=== PATIENT | male | born 1965 | race Caucasian/White ===

== ENCOUNTER 2016-09-15 15:25 | Inpatient (IN) ==
--- NOTE | 2016-09-15 15:47 | EKG Report ---
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
[2016-09-15] MEDS ORDERED: ASPIRIN CHEW 81 MG TABLET PO STA (17:26)
[2016-09-15] MEDS ORDERED: ALUMINUM/MAGNES/SIMETH MAX STR 30 ML UDCUP PO ONE (17:26)
[2016-09-15 17:40] LABS: Basophils # 0.1 10*3/uL (0.0-0.2); Basophils % 1.1 % (0.0-0.8); Eosinophils # 0.3 10*3/uL (0.0-0.87); Eosinophils % 3.3 % (0.00-10.9); Hematocrit 41.1 VOL% (42.0-52.0); Hemoglobin 14.1 GM/DL (14.0-18.0); Immature Granulocytes % 0.2 %; Immature Granulocytes Absolute 0.02 #; Lymphocytes # 2.1 10*3/uL (1.4-4.0); Mean Corpuscular HGB Conc 34.3 GM/DL (32-36); Mean Corpuscular Hemoglobin 28 PG (27-34); Mean Platelet Volume 10.3 FL (9.6-12.0); Monocytes # 0.7 10*3/uL (0.11-0.8); Monocytes % 8.5 % (1.7-12.7); Neutrophils # 5.1 10*3/uL (1.4-7.4); Neutrophils % 61.9 % (38.7-73.9); Platelet Count 188 T/CUMM (130-400); Red Blood Count 5.01 MC/CUMM (3.8-5.5); White Blood Count 8.2 T/CUMM (4-12)
[2016-09-15] MEDS ORDERED: ASPIRIN 325 MG TABLET ONE (17:52)
[2016-09-15] MEDS ORDERED: ALUM/MAG/SIMETH/LIDO VISC 1:1 30 ML BOTTLE PO ONE (17:52)
[2016-09-15 18:07] LABS: Calcium 9.2 MG/DL (8.5-10.1); Osmolality,Calculated 280.4 MOS/KG (273-304); Potassium 3.9 MMOL/L (3.5-5.1)
[2016-09-15 18:11] LABS: Troponin I Only < 0.015 NG/ML (0.00-0.045)
--- NOTE | 2016-09-15 18:43 | XRay Report ---
History is chest pain Comparison 06/30/2016 The heart is mildly enlarged Moderate hiatal hernia again seen Superior mediastinal contour is unchanged No congestive failure or confluent infiltrate is seen Impression: 1. Mild cardiomegaly 2. Moderate hiatal hernia PROCEDURE INTERPRETED AT [facility] DEPARTMENT OF RADIOLOGY Final Report Signed by: Dr. Idalia Cedillo
[2016-09-15] MEDS ORDERED: ENOXAPARIN 100 MG/ML SYRINGE SUBCUT STA (19:28)
[2016-09-15] MEDS ORDERED: ENOXAPARIN 120 MG/0.8 ML SYRINGE SUBCUT ONE (19:42)
[2016-09-15] MEDS ORDERED: MAGNESIUM SULF RIDER 4 GM in PREMIX 1 EACH IV PRN (20:43)
[2016-09-15] MEDS ORDERED: DEXTROSE 50% 25 GM/50 ML VIAL IV PRN (20:43)
[2016-09-15] MEDS ORDERED: MORPHINE 2 MG/1 ML SYRINGE IV PRN (20:43)
[2016-09-15] MEDS ORDERED: POTASSIUM CHLORIDE 20 MEQ TABLET PO PRN (20:43)
[2016-09-15] MEDS ORDERED: SODIUM CHLORIDE 0.9% 1,000 ML IV SCH (20:43)
[2016-09-15] MEDS ORDERED: GLUCAGON 1 MG VIAL IM PRN (20:43)
[2016-09-15] MEDS ORDERED: MAGNESIUM SULF RIDER 2 GM in PREMIX 1 EACH IV PRN (20:43)
[2016-09-15] MEDS ORDERED: clonazePAM 0.5 MG TABLET PO PRN (20:43)
[2016-09-15] MEDS ORDERED: cloNIDine 0.1 MG TABLET PO PRN (20:43)
[2016-09-15] MEDS ORDERED: ONDANSETRON 4 MG/2 ML VIAL IV PRN (20:43)
[2016-09-15] MEDS: FAMOTIDINE 20 MG TABLET PO SCH (21:09)
[2016-09-15] MEDS: CARVEDILOL 12.5 MG TABLET PO SCH (21:09)
[2016-09-15] MEDS: CEFUROXIME 250 MG TABLET PO SCH (21:09)
[2016-09-15 21:57] LABS: Troponin I Only < 0.015 NG/ML (0.00-0.045)
[2016-09-15] MEDS: INSULIN REGULAR 100 UNIT/ML SUBCUT SCH (22:31)
[2016-09-16] MEDS: NITROGLYCERIN 2% OINT 1 INCH/GM PACK TOP SCH ×5 (01:39→17:53)
[2016-09-16 04:04] LABS: Basophils # 0.1 10*3/uL (0.0-0.2); Basophils % 0.7 % (0.0-0.8); Eosinophils # 0.2 10*3/uL (0.0-0.87); Eosinophils % 3.4 % (0.00-10.9); Hematocrit 37.8 VOL% (42.0-52.0); Hemoglobin 12.7 GM/DL (14.0-18.0); Immature Granulocytes % 0.1 %; Immature Granulocytes Absolute 0.01 #; Lymphocytes # 2.3 10*3/uL (1.4-4.0); Lymphocytes % 34.6 % (21.2-54.2); Mean Corpuscular HGB Conc 33.6 GM/DL (32-36); Mean Corpuscular Hemoglobin 28 PG (27-34); Mean Corpuscular Volume 82.5 FL (87-102); Mean Platelet Volume 11.5 FL (9.6-12.0); Monocytes # 0.6 10*3/uL (0.11-0.8); Monocytes % 9.3 % (1.7-12.7); Neutrophils # 3.5 10*3/uL (1.4-7.4); Neutrophils % 51.9 % (38.7-73.9); Platelet Count 162 T/CUMM (130-400); Red Blood Count 4.58 MC/CUMM (3.8-5.5); Red Cell Distribution Width 13.2 % (9.3-17.3); White Blood Count 6.7 T/CUMM (4-12)
[2016-09-16 04:24] LABS: Bilirubin,Total 0.6 MG/DL (0.2-1.0); Calcium 8.6 MG/DL (8.5-10.1); Magnesium 2.3 MG/DL (1.8-2.4); Osmolality,Calculated 285.1 MOS/KG (273-304); Potassium 3.7 MMOL/L (3.5-5.1); Risk Ratio 3.12; Total Protein 5.9 G/DL (6.4-8.3); VLDL CHOLESTEROL 24.6 MG/DL
[2016-09-16 04:28] LABS: Troponin I Only < 0.015 NG/ML (0.00-0.045)
--- NOTE | 2016-09-16 08:52 | XRay Report ---
Portable chest Date: 09/16/2016 Clinical history: Shortness of breath Comparison: 09/15/2016 Technique: Portable AP sitting chest Findings: The heart is minimally enlarged with progressive atelectasis at the lung bases. Hiatal hernia with degenerative changes. Impression: Persistent cardiomegaly with hiatal hernia. Minimal atelectasis at the lung bases. PROCEDURE INTERPRETED AT [facility] DEPARTMENT OF RADIOLOGY Final Report Signed by: Dr. Ama Tee
[2016-09-16] MEDS ORDERED: PANTOPRAZOLE 40 MG TABLET PO SCH (09:00)
--- NOTE | 2016-09-16 09:38 | Cardiology History & Physical ---
<Milla Tobar E - Last Filed: 09/16/16 09:11> Assessment and Plan - Time spent with patient Time spent with patient: Greater than 30 minutes (due to assessment, plan, and documentation) (1) Chest pain Status: Acute Current Visit: Yes (2) VICK (dyspnea on exertion) Status: Acute Current Visit: Yes (3) CAD (coronary artery disease) Status: Chronic Current Visit: No Qualifiers: Coronary Disease-Associated Artery/Lesion type: [place] artery (4) GERD (gastroesophageal reflux disease) Status: Chronic Current Visit: Yes (5) HTN (hypertension) Status: Chronic Current Visit: No (6) History of CVA (cerebrovascular accident) Status: Chronic Current Visit: Yes (7) Diabetes mellitus Status: Chronic Current Visit: No (8) Dyslipidemia Status: Chronic Current Visit: Yes (9) Patent foramen ovale Status: Chronic Current Visit: Yes (10) Obstructive sleep apnea Status: Chronic Current Visit: Yes (11) Obesity (BMI 30-39.9) Status: Chronic Current Visit: Yes History of Present Illness Chief complaint: SOB, CP History of present illness: Hvac Technician Residential: Dr. Ring PCP: Dr. Flores Faulkner Mr. Valentino is a 51 year old male with a history of moderate coronary artery disease (50% OM 3 stenosis) per left heart catheterization in August 2013. He has a history of a stroke April 23, 2016, initially ischemic been complicated by conversion to hemorrhagic. He also has a history of hypertension , hyperlipidemia, diabetes, obesity, obstructive sleep apnea, patent foramen ovale. He reports he is compliant with his CPAP machine and has also lost approximately 70-80 pounds since April. Mr. Valentino presented to the emergency room yesterday evening with complaints of dyspnea on exertion and chest discomfort that began Friday. He is normally pretty sedentary and tells me he has not done much activity since his stroke in April but on Friday he and his purchased new mattresses and when they were transferring them in the house to the bedroom, he tells me that he "gave out quickly." He reports he became winded and noticed palpitations. This lasted for 1-2 minutes and improves with rest. On Friday, he reports they had a platelet dinner for lunch and when he was carrying the empty crockpot back to their vehicle, he became short of breath. He tells me that he checked his vital signs and noted his heart rate was approximately 113. He also reports having some midsternal burning for the past 3-4 days. This morning he reports he felt a tightness in his mid chest. He has had no radiation of this discomfort but has noted some back pain between his scapula. His midsternal burning/tightness was relieved by Mylanta yesterday, but chest tightness this morning was relieved by topical nitroglycerin. He denies associated orthopnea, diaphoresis, nausea, vomiting, dizziness, or lightheadedness. He reports his pain is not worsened by lying flat. ASSESSMENT/PLAN: 1. CHEST PAIN - He has had 3 sets of negative cardiac biomarkers. EKG shows sinus rhythm with nonspecific ST-T abnormality. 2. DYSPNEA ON EXERTION - This began over the weekend when the patient began exertional activities. His symptoms he describes are suspicious for angina, but there is also a GI component to his symptoms. He may benefit from further cardiac evaluation. Will further discuss stress testing vs. [facility] with Dr. Pimentle and await his recommendations. 3. CORONARY ARTERY DISEASE - History of moderate CAD (50% OM 3 stenosis ) per [facility] on 08/18. 4. GERD - Continue PPI. History of esophageal ulcers. 5. HYPERTENSION - Currently well controlled. Will continue to monitor and adjust accordingly. 6. HISTORY OF CVA - He has a history of a stroke April 23, 2016, initially ischemic been complicated by conversion to hemorrhagic with residual occasional left arm and leg paresthesias and numbness. Ambulation is not impaired. Continue Plavix. 7. DIABETES - He has been started on accuchecks with sliding scale insulin. 8. DYSLIPIDEMIA - Currently not on medication. Triglycerides 123, cholesterol 131, LDL 79, HDL 42. 9. HISTORY OF PATENT FORAMEN OVALE - Found per [facility] 04/23/16. At that time, he was noted to have EF 55%, no evidence of thrombus, mild LVH, trace to 1+ MR and TR. 10. OBSTRUCTIVE SLEEP APNEA - Compliant with nightly CPAP. Continue use while in hospital. 11. OBESITY - Chronic. Patient has lost approximately 70-80 pounds since his stroke in April 2016. Home Medications Medication Instructions Recorded Confirmed Type Clopidogrel [Plavix] 75 mg PO QAM 06/30/16 09/15/16 History Lisinopril 40 mg PO QAM 06/30/16 09/15/16 History Pantoprazole Sodium 40 mg PO QAM 06/30/16 09/15/16 History cloNIDine HCl [Clonidine HCl] 0.1 mg PO Q4-6H PRN 06/30/16 09/15/16 History sitaGLIPtin [Januvia] 50 mg PO QAM 06/30/16 09/15/16 History Calcium Carbonate [Tums Chew Tab] 750 mg PO DAILY PRN 09/15/16 09/15/16 History Carvedilol [Coreg] 12.5 mg PO BID 09/15/16 09/15/16 History Cefuroxime Tab [Ceftin] 250 mg PO BID 09/15/16 09/15/16 History Famotidine Tab [Pepcid Tab] 20 mg PO BEDTIME 09/15/16 09/15/16 History Simethicone [Gas Relief] 125 mg PO DAILY 09/15/16 09/15/16 History clonazePAM TAB [KlonoPIN] 0.5 mg PO DAILY PRN 09/15/16 09/15/16 History Allergies Allergy/AdvReac Type Severity Reaction Status Date / Time No Known Allergies Allergy Verified 09/15/16 15:35 Review of systems: - Constitutional: Present:fatigue, As per HPI. Absent: anorexia, chills, daytime sleepiness, excessive sweating, fever(s), frequent falls, headache(s), increased appetite, lethargy, malaise, night sweats, stops breathing during sleep, weakness, weight gain, weight loss. - EENT Eyes: Present: As per HPI. Absent: blurry vision, diplopia, loss of vision Ears: Present: As per HPI. Absent: decreased hearing, ear discharge, ear pain Nose, mouth and throat: Present: As per HPI. Absent: dysphagia, epistaxis, headache(s), hoarseness, lip swelling, nasal congestion, neck mass, neck pain, sinus pressure, sore throat, throat swelling, tongue swelling, vertigo - Cardiovascular: Present: chest pain (midsternal burning) at rest, chest pain with activity, dyspnea on exertion, palpitations, as per HPI. Absent: dyspnea, edema, claudication, diaphoresis, radiating jaw, neck or arm pain, lightheadedness, orthopnea, PND - Respiratory: Present: dyspnea on exertion, as per HPI. Absent: dyspnea, cough , hemoptysis, wheezing, snoring, pain on inspiration - Gastrointestinal: Present: heartburn, As per HPI. Absent: abdominal pain, bloating, change in bowel habits, constipation, diarrhea, hematemesis, hematochezia, loose stools, melena, nausea, vomiting - Genitourinary: Present: As per HPI. Absent: difficulty urinating, dysuria, flank pain, hematuria, nocturia, urinary frequency, urinary incontinence - Musculoskeletal: Present: back pain, As per HPI. Absent: arthralgias, joint swelling, limited range of motion, muscle cramps, muscle weakness, myalgias - Neurological: Present: numbness, paresthesias, As per HPI. Absent: abnormal gait, abnormal speech, behavioral changes, confusion, convulsions, disequilibrium, dizziness, focal weakness, frequent falls, headache(s), memory loss, radicular pain, syncope, tremor(s) - Psychiatric: Present: As per HPI. Absent: anxiety, confusion, depression, panic attacks - Endocrine: Present: fatigue, As per HPI. Absent: cold intolerance, heat intolerance, polydipsia, polyphagia - Hematologic/Lymphatic: Present: easy bruising, As per HPI. Absent: easy bleeding, lymphadenopathy Medical,Surgical,& Family Hx - Medical History Cardio: History of: CAD, Hypertension, Cardiovascular Problems (history of PFO) Neurology: History of: Cerebrovascular Accident Endocrine: History of: Diabetes Mellitus (NIDDM), Dyslipidemia Respiratory: History of: Obstructive Sleep Apnea Gastrointestinal: History of: GERD - Surgical History Cardiac Surgeries: Sugical HX of: Cardiac Catheterization - Family History Family History: Reports;: Family Diabetes, Family Heart Disease, Family Hypertension, Family Stroke - Social History Smoking Status: Former smoker Frequency of Alcohol Use: None Type of Drug Use: None Marital Status: Lives With:: Spouse Functional capacity: independent ambulation Cardiology Physical Exam - Constitutional Vitals: Vital Signs Temp Pulse Resp BP Pulse Ox 97.5 F L 58 L 20 139/79 99 09/16/16 08:00 09/16/16 08:00 09/16/16 08:00 09/16/16 08:00 09/16/16 08:00 Intake and Output 09/15/16 09/16/16 09/16/16 22:59 06:59 14:59 Intake Total 0 / 0 Output Total 0 / 0 150 / 150 Balance 0 / 0 -150 / -150 Intake: Oral 0 / 0 Output: Urine 0 / 0 150 / 150 Other: Weight 274 lb 2 oz 274 lb 2 oz Exam: General appearance: Pleasant and cooperative. Normal weight, no acute distress. - Head Head exam: Present: normal inspection, normocephalic, atraumatic. Absent: hematoma, laceration - Eye Eye exam: Present: EOMI. Absent: conjunctival injection, nystagmus, periorbital swelling, scleral icterus, laceration to eyelids Pupils: Present: PERRL. Absent: constricted, dilated, fixed, irregular, unequal - ENT ENT exam: Present: normal exam, normal external ear exam - Neck Neck exam: Present: normal inspection. Absent: lymphadenopathy, meningismus, tenderness, thyromegaly - Respiratory Respiratory exam: Present: clear to auscultation bilaterally. Absent: accessory muscle use, chest wall tenderness - Cardiovascular Cardiovascular exam: Present: regular rate and rhythm. Absent: carotid bruit, gallop, JVD, rubs, murmur - GI/Abdominal GI/Abdominal exam: Present: normal bowel sounds, soft. Absent: distended, firm , guarding, hernia, mass, tenderness, rebound. - Extremities Exam Extremities exam: Present: normal inspection, normal capillary refill. Upper extremity pulses 2+. Lower extremity pulses 2+. Absent: calf tenderness, edema -Musculoskeletal Exam Musculoskeletal: Present: No Fluid Collection, No Pain, Normal Range of Motion - Back Exam Back exam: Present: normal inspection. Absent: muscle spasm, vertebral tenderness - Neurological Exam Neurological exam: Present: alert, oriented X3, grossly intact without resting or essential tremor - Psychiatric Psychiatric exam: Present: normal affect, normal mood - Skin Skin exam: Present: normal color, warm, dry, intact. Absent: cyanosis, diaphoretic, rash, urticaria Result/EKG - Labs CBC & BMP: 09/16/16 02:49 09/16/16 02:49 Lab Results: I have reviewed the past 24 hour labs Labs: Laboratory Results - last 24 hr 09/15/16 09/15/16 09/15/16 17:35 17:35 17:35 WBC 8.2 RBC 5.01 Hgb 14.1 Hct 41.1 L MCV 82.0 L MCH 28 MCHC 34.3 RDW 13.0 Plt Count 188 MPV 10.3 Neut % (Auto) 61.9 Lymph % (Auto) 25.0 George % (Auto) 8.5 Eos % (Auto) 3.3 Baso % (Auto) 1.1 H Neut # (Auto) 5.1 Lymph # (Auto) 2.1 George # (Auto) 0.7 Eos # (Auto) 0.3 Baso # (Auto) 0.1 Immature Gran % 0.2 Nucleated RBC % 0.0 Immature Gran # 0.02 Nucleated RBCs # 0.00 Sodium 140 Potassium 3.9 Chloride 106 Carbon Dioxide 23 Anion Gap 14.9 BUN 10 Creatinine 1.00 GFR Calculation 122 BUN/Creatinine Ratio 10.00 Glucose 147 H POC Glucose Calculated Osmolality 280.4 Calcium 9.2 Magnesium Total Bilirubin AST ALT Alkaline Phosphatase Total Creatine Kinase 56 CK-MB (CK-2) Troponin I < 0.015 B-Natriuretic Peptide Total Protein Albumin Globulin Albumin/Globulin Ratio Triglycerides Cholesterol LDL Cholesterol VLDL Cholesterol HDL Cholesterol Heart Disease Risk Ratio 09/15/16 09/15/16 09/16/16 21:05 21:43 02:49 WBC 6.7 RBC 4.58 Hgb 12.7 L Hct 37.8 L MCV 82.5 L MCH 28 MCHC 33.6 RDW 13.2 Plt Count 162 MPV 11.5 Neut % (Auto) 51.9 Lymph % (Auto) 34.6 George % (Auto) 9.3 Eos % (Auto) 3.4 Baso % (Auto) 0.7 Neut # (Auto) 3.5 Lymph # (Auto) 2.3 George # (Auto) 0.6 Eos # (Auto) 0.2 Baso # (Auto) 0.1 Immature Gran % 0.1 Nucleated RBC % 0.0 Immature Gran # 0.01 Nucleated RBCs # 0.00 Sodium Potassium Chloride Carbon Dioxide Anion Gap BUN Creatinine GFR Calculation BUN/Creatinine Ratio Glucose POC Glucose 195 H Calculated Osmolality Calcium Magnesium Total Bilirubin AST ALT Alkaline Phosphatase Total Creatine Kinase 49 CK-MB (CK-2) < 1.0 Troponin I < 0.015 B-Natriuretic Peptide Total Protein Albumin Globulin Albumin/Globulin Ratio Triglycerides Cholesterol LDL Cholesterol VLDL Cholesterol HDL Cholesterol Heart Disease Risk Ratio 09/16/16 09/16/16 09/16/16 02:49 02:49 02:49 WBC RBC Hgb Hct MCV MCH MCHC RDW Plt Count MPV Neut % (Auto) Lymph % (Auto) George % (Auto) Eos % (Auto) Baso % (Auto) Neut # (Auto) Lymph # (Auto) George # (Auto) Eos # (Auto) Baso # (Auto) Immature Gran % Nucleated RBC % Immature Gran # Nucleated RBCs # Sodium 142 Potassium 3.7 Chloride 106 Carbon Dioxide 28 Anion Gap 11.7 BUN 10 Creatinine 0.90 GFR Calculation 138 BUN/Creatinine Ratio 11.00 Glucose 167 H POC Glucose Calculated Osmolality 285.1 Calcium 8.6 Magnesium 2.3 Total Bilirubin 0.60 AST 8 ALT 16 Alkaline Phosphatase 62 Total Creatine Kinase 40 CK-MB (CK-2) < 1.0 Troponin I < 0.015 B-Natriuretic Peptide 23 Total Protein 5.9 L Albumin 3.0 L Globulin 2.9 Albumin/Globulin Ratio 1.0 L Triglycerides 123 Cholesterol 131 LDL Cholesterol 79.0 VLDL Cholesterol 24.6 HDL Cholesterol 42 Heart Disease Risk Ratio 3.12 09/16/16 09/16/16 06:32 08:00 WBC RBC Hgb Hct MCV MCH MCHC RDW Plt Count MPV Neut % (Auto) Lymph % (Auto) George % (Auto) Eos % (Auto) Baso % (Auto) Neut # (Auto) Lymph # (Auto) George # (Auto) Eos # (Auto) Baso # (Auto) Immature Gran % Nucleated RBC % Immature Gran # Nucleated RBCs # Sodium Potassium Chloride Carbon Dioxide Anion Gap BUN Creatinine GFR Calculation BUN/Creatinine Ratio Glucose POC Glucose 130 H 132 H Calculated Osmolality Calcium Magnesium Total Bilirubin AST ALT Alkaline Phosphatase Total Creatine Kinase CK-MB (CK-2) Troponin I B-Natriuretic Peptide Total Protein Albumin Globulin Albumin/Globulin Ratio Triglycerides Cholesterol LDL Cholesterol VLDL Cholesterol HDL Cholesterol Heart Disease Risk Ratio - EKG EKG results: interpreted by me, sinus rhythm (with nonspecific ST-T abnormality) <Talib Pimentel - Last Filed: 09/16/16 10:51> History of Present Illness History of present illness: Mr. Valentino is a 51 year old male Cardiology Physical Exam - Constitutional Vitals: Vital Signs Temp Pulse Resp BP Pulse Ox 97.5 F L 58 L 20 139/79 99 09/16/16 08:00 09/16/16 08:00 09/16/16 08:00 09/16/16 08:00 09/16/16 08:00 Intake and Output 0609/16/16 09/16/16 23:59 07:59 15:59 Intake Total 0 / 0 Output Total 0 / 0 150 / 150 Balance 0 / 0 -150 / -150 Intake: Oral 0 / 0 Output: Urine 0 / 0 150 / 150 Other: Weight 124.341 kg 124.341 kg Patient Weight 09/16/16 23:59 Weight 124.341 kg Result/EKG - Labs CBC & BMP: 09/16/16 02:49 09/16/16 02:49 Labs: Laboratory Results - last 24 hr 09/15/16 09/15/16 09/15/16 17:35 17:35 17:35 WBC 8.2 RBC 5.01 Hgb 14.1 Hct 41.1 L MCV 82.0 L MCH 28 MCHC 34.3 RDW 13.0 Plt Count 188 MPV 10.3 Neut % (Auto) 61.9 Lymph % (Auto) 25.0 George % (Auto) 8.5 Eos % (Auto) 3.3 Baso % (Auto) 1.1 H Neut # (Auto) 5.1 Lymph # (Auto) 2.1 George # (Auto) 0.7 Eos # (Auto) 0.3 Baso # (Auto) 0.1 Immature Gran % 0.2 Nucleated RBC % 0.0 Immature Gran # 0.02 Nucleated RBCs # 0.00 Sodium 140 Potassium 3.9 Chloride 106 Carbon Dioxide 23 Anion Gap 14.9 BUN 10 Creatinine 1.00 GFR Calculation 122 BUN/Creatinine Ratio 10.00 Glucose 147 H POC Glucose Calculated Osmolality 280.4 Calcium 9.2 Magnesium Total Bilirubin AST ALT Alkaline Phosphatase Total Creatine Kinase 56 CK-MB (CK-2) Troponin I < 0.015 B-Natriuretic Peptide Total Protein Albumin Globulin Albumin/Globulin Ratio Triglycerides Cholesterol LDL Cholesterol VLDL Cholesterol HDL Cholesterol Heart Disease Risk Ratio 09/15/16 09/15/16 09/16/16 21:05 21:43 02:49 WBC 6.7 RBC 4.58 Hgb 12.7 L Hct 37.8 L MCV 82.5 L MCH 28 MCHC 33.6 RDW 13.2 Plt Count 162 MPV 11.5 Neut % (Auto) 51.9 Lymph % (Auto) 34.6 George % (Auto) 9.3 Eos % (Auto) 3.4 Baso % (Auto) 0.7 Neut # (Auto) 3.5 Lymph # (Auto) 2.3 George # (Auto) 0.6 Eos # (Auto) 0.2 Baso # (Auto) 0.1 Immature Gran % 0.1 Nucleated RBC % 0.0 Immature Gran # 0.01 Nucleated RBCs # 0.00 Sodium Potassium Chloride Carbon Dioxide Anion Gap BUN Creatinine GFR Calculation BUN/Creatinine Ratio Glucose POC Glucose 195 H Calculated Osmolality Calcium Magnesium Total Bilirubin AST ALT Alkaline Phosphatase Total Creatine Kinase 49 CK-MB (CK-2) < 1.0 Troponin I < 0.015 B-Natriuretic Peptide Total Protein Albumin Globulin Albumin/Globulin Ratio Triglycerides Cholesterol LDL Cholesterol VLDL Cholesterol HDL Cholesterol Heart Disease Risk Ratio 09/16/16 09/16/16 09/16/16 02:49 02:49 02:49 WBC RBC Hgb Hct MCV MCH MCHC RDW Plt Count MPV Neut % (Auto) Lymph % (Auto) George % (Auto) Eos % (Auto) Baso % (Auto) Neut # (Auto) Lymph # (Auto) George # (Auto) Eos # (Auto) Baso # (Auto) Immature Gran % Nucleated RBC % Immature Gran # Nucleated RBCs # Sodium 142 Potassium 3.7 Chloride 106 Carbon Dioxide 28 Anion Gap 11.7 BUN 10 Creatinine 0.90 GFR Calculation 138 BUN/Creatinine Ratio 11.00 Glucose 167 H POC Glucose Calculated Osmolality 285.1 Calcium 8.6 Magnesium 2.3 Total Bilirubin 0.60 AST 8 ALT 16 Alkaline Phosphatase 62 Total Creatine Kinase 40 CK-MB (CK-2) < 1.0 Troponin I < 0.015 B-Natriuretic Peptide 23 Total Protein 5.9 L Albumin 3.0 L Globulin 2.9 Albumin/Globulin Ratio 1.0 L Triglycerides 123 Cholesterol 131 LDL Cholesterol 79.0 VLDL Cholesterol 24.6 HDL Cholesterol 42 Heart Disease Risk Ratio 3.12 09/16/16 09/16/16 06:32 08:00 WBC RBC Hgb Hct MCV MCH MCHC RDW Plt Count MPV Neut % (Auto) Lymph % (Auto) George % (Auto) Eos % (Auto) Baso % (Auto) Neut # (Auto) Lymph # (Auto) George # (Auto) Eos # (Auto) Baso # (Auto) Immature Gran % Nucleated RBC % Immature Gran # Nucleated RBCs # Sodium Potassium Chloride Carbon Dioxide Anion Gap BUN Creatinine GFR Calculation BUN/Creatinine Ratio Glucose POC Glucose 130 H 132 H Calculated Osmolality Calcium Magnesium Total Bilirubin AST ALT Alkaline Phosphatase Total Creatine Kinase CK-MB (CK-2) Troponin I B-Natriuretic Peptide Total Protein Albumin Globulin Albumin/Globulin Ratio Triglycerides Cholesterol LDL Cholesterol VLDL Cholesterol HDL Cholesterol Heart Disease Risk Ratio
[2016-09-16] MEDS: INSULIN REGULAR 100 UNIT/ML SUBCUT SCH ×4 (09:41→20:42)
--- NOTE | 2016-09-16 10:00 | EKG Report ---
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
[2016-09-16] MEDS: SIMETHICONE CHEW 125 MG TABLET PO SCH (10:01)
[2016-09-16] MEDS: LISINOPRIL 20 MG TABLET PO SCH (10:02)
[2016-09-16] MEDS: CLOPIDOGREL 75 MG TABLET PO SCH (10:02)
[2016-09-16] MEDS: PANTOPRAZOLE 40 MG TABLET PO SCH (10:02)
[2016-09-16] MEDS: ASPIRIN EC 325 MG TABLET PO SCH (10:02)
[2016-09-16] MEDS: CARVEDILOL 12.5 MG TABLET PO SCH ×2 (10:03→20:38)
[2016-09-16] MEDS: ENOXAPARIN 120 MG/0.8 ML SYRINGE SUBCUT SCH ×3 (10:08→20:41)
[2016-09-16] MEDS: CALCIUM CARBONATE CHEW 500 MG TABLET PO PRN ×2 (12:32→20:38)
[2016-09-16] MEDS ORDERED: ACETAMINOPHEN 325 MG TABLET PO PRN (12:37)
--- NOTE | 2016-09-16 13:02 | EKG Report ---
Stationary ECG Study 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
[2016-09-16] MEDS ORDERED: ALUM/MAG/SIMETH/LIDO VISC 1:1 30 ML BOTTLE PO ONE (13:05)
[2016-09-16 13:45] LABS: Troponin I Only < 0.015 NG/ML (0.00-0.045)
[2016-09-16] MEDS: CEFUROXIME 250 MG TABLET PO SCH ×2 (14:06→20:38)
[2016-09-16] MEDS: sitaGLIPtin 100 MG TABLET PO SCH (14:06)
[2016-09-16] MEDS ORDERED: BISACODYL 5 MG TABLET PO PRN (14:38)
[2016-09-16] MEDS ORDERED: ZALEPLON 5 MG CAPSULE PO PRN (14:38)
--- NOTE | 2016-09-16 16:27 | Neurology Consult Note ---
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 He was started on Plavix on his last stroke. He has been taking that pretty religiously. He has recovered from the stroke completely. He is doing really well. There is a question of possible atrial fibrillation. Patient does not have any brain symptoms this time. No headaches reported. No tingling numbness weakness vision difficulties or swallowing problems reported. Home Medications Medication Instructions Recorded Confirmed Type Clopidogrel [Plavix] 75 mg PO QAM 06/30/16 09/15/16 History Lisinopril 40 mg PO QAM 06/30/16 09/15/16 History Pantoprazole Sodium 40 mg PO QAM 06/30/16 09/15/16 History cloNIDine HCl [Clonidine HCl] 0.1 mg PO Q4-6H PRN 06/30/16 09/15/16 History sitaGLIPtin [Januvia] 50 mg PO QAM 06/30/16 09/15/16 History Calcium Carbonate [Tums Chew Tab] 750 mg PO DAILY PRN 09/15/16 09/15/16 History Carvedilol [Coreg] 12.5 mg PO BID 09/15/16 09/15/16 History Cefuroxime Tab [Ceftin] 250 mg PO BID 09/15/16 09/15/16 History Famotidine Tab [Pepcid Tab] 20 mg PO BEDTIME 09/15/16 09/15/16 History Simethicone [Gas Relief] 125 mg PO DAILY 09/15/16 09/15/16 History clonazePAM TAB [KlonoPIN] 0.5 mg PO DAILY PRN 09/15/16 09/15/16 History Allergies Allergy/AdvReac Type Severity Reaction Status Date / Time No Known Allergies Allergy Verified 09/15/16 15:35 12 point system: reviewed and no additional remarkable complaints except as stated Medical,Surgical,& Family Hx - Medical History Cardio: History of: CAD, Hypertension, Cardiovascular Problems (history of PFO) Neurology: History of: Cerebrovascular Accident Endocrine: History of: Diabetes Mellitus (NIDDM), Dyslipidemia Respiratory: History of: Obstructive Sleep Apnea Gastrointestinal: History of: GERD - Surgical History Cardiac Surgeries: Sugical HX of: Cardiac Catheterization - Family History Family History: Reports;: Family Diabetes, Family Heart Disease, Family Hypertension, Family Stroke - Social History Smoking Status: Former smoker Frequency of Alcohol Use: None Type of Drug Use: None Exam - Constitutional Vitals: Period Temp Pulse Resp BP Sys/Berkowitz Pulse Ox Last 24 Hr 97.3 F-98.8 F 54-76 18-20 103-154/61-95 94-100 Exam: GENERAL: Patient is in no acute distress. NECK: Neck is supple. There is no JVD. No carotid bruits present. No thyroid masses. CVS: First and second heart sounds are normal. There is no S3 present. Regular rate and rhythm. RESPIRATORY: Lungs are clear to auscultation without any rales or rhonchi. ABDOMEN: Soft and non-tender. Bowel sounds are present. There is no hepatosplenomegaly. EXT: There is no palpable edema. Peripheral pulses are present. Skin: No rashes Central Nervous system: General: Alert, awake and Oriented x 3 Speech: Fluent Comprehension: Intact and normal Facial expressions: Normal Cranial Nerves: CN1/Olfactory: Normal CN II/ Optic: Normal, Visual [place] unreliable CN III, and : RUCHI & EOMI CN V: Normal & intact CN VII: face is symmetric CNVIII: Normal CN XI/X/XI/XII: Intact and Normal Motor: Bulk and Tone is normal. Strength in the right 5/5 Strength in the left 5/5 Sensory: Grossly intact for all the modalities of PP, LT and temp sense Reflexes: 1+ and symmetrical Cerebellar function: Normal finger to nose and heel to pearl testing. Toes: Equivocal Gait: Normal heel to heel and toe to toe and tandem walk. Results - Labs CBC & BMP: 09/16/16 02:49 09/16/16 02:49 Assessment and Plan (1) History of CVA (cerebrovascular accident) Status: Chronic Assessment and plan: CT head without contrast If that looks okay then it would be okay to switch him over to either Coumadin/ Eliquis. Thank you for the consult. Current Visit: Yes Specialty Discharge - Follow Up or Referrals
--- NOTE | 2016-09-16 17:14 | CT Report ---
CT head/brain wo con Indication: History of stroke. CT BRAIN WITHOUT CONTRAST DLP: 10 8 1 mGy*cm. One or more of the following dose reduction techniques was used: Automated exposure control, adjustment of the mA and/or kV according the patient size, or use of iterative reconstruction techniques. Comparison: 04/24/2016. Date of admission: 09/15/2016. Technique: Axial noncontrast CT images of the brain were obtained. Findings: Old right temporal occipital infarct is present, previously a hemorrhagic infarct. No acute hemorrhage identified. No mass or mass effect. Mild generalized atrophy noted. Aside from the focal encephalomalacia right [employer] territory, agrawal-white junction is maintained. Basal ganglia structures are well-defined. Visualized paranasal sinuses and mastoid air cells are clear. No bone lesions. Impression: No acute intracranial pathology. Chronic right temporal occipital infarct. Mild generalized atrophy. PROCEDURE INTERPRETED AT [facility] DEPARTMENT OF RADIOLOGY Final Report Signed by: Rich Rowell M.D.
[2016-09-16] MEDS: FAMOTIDINE 20 MG TABLET PO SCH (20:38)
[2016-09-17] MEDS: NITROGLYCERIN 2% OINT 1 INCH/GM PACK TOP SCH ×3 (01:21→12:37)
[2016-09-17 05:01] LABS: Basophils # 0.1 10*3/uL (0.0-0.2); Basophils % 0.9 % (0.0-0.8); Eosinophils # 0.1 10*3/uL (0.0-0.87); Eosinophils % 1.7 % (0.00-10.9); Hematocrit 39.3 VOL% (42.0-52.0); Hemoglobin 13.3 GM/DL (14.0-18.0); Immature Granulocytes % 0.3 %; Immature Granulocytes Absolute 0.02 #; Lymphocytes # 1.8 10*3/uL (1.4-4.0); Lymphocytes % 23.9 % (21.2-54.2); Mean Corpuscular HGB Conc 33.8 GM/DL (32-36); Mean Corpuscular Hemoglobin 28 PG (27-34); Mean Corpuscular Volume 82.7 FL (87-102); Mean Platelet Volume 10.9 FL (9.6-12.0); Monocytes # 0.6 10*3/uL (0.11-0.8); Monocytes % 7.7 % (1.7-12.7); Neutrophils # 4.9 10*3/uL (1.4-7.4); Neutrophils % 65.5 % (38.7-73.9); Platelet Count 152 T/CUMM (130-400); Red Blood Count 4.75 MC/CUMM (3.8-5.5); Red Cell Distribution Width 13.1 % (9.3-17.3); White Blood Count 7.5 T/CUMM (4-12)
[2016-09-17 05:39] LABS: Calcium 8.7 MG/DL (8.5-10.1); Magnesium 2.4 MG/DL (1.8-2.4); Osmolality,Calculated 278.4 MOS/KG (273-304); Potassium 4.1 MMOL/L (3.5-5.1)
--- NOTE | 2016-09-17 07:28 | EKG Report ---
Stationary ECG Study [facility] Test Date: 09/17/2016 7:29:14 AM Pat Name: LYDIA SIMON Department: Room: 292 Gender: M Blocker Hand: URSULA : 1965 Requested by: Milla Tobar Order Number: [id number] Reading MD: NAVA KANG Intervals [place] Rate: 50 P: 39 DE: 184 QRS: -2 QRSD: 94 T: 18 QT: 422 QTc: 395 Interpretive Statements SINUS BRADYCARDIA LOW QRS VOLTAGE IN PRECORDIAL LEADS Electronically Signed On 09-18-16 07:52:07 CDT by NAVA KANG [email or web address]
[2016-09-17] MEDS: INSULIN REGULAR 100 UNIT/ML SUBCUT SCH ×2 (08:36→12:36)
[2016-09-17] MEDS: CALCIUM CARBONATE CHEW 500 MG TABLET PO PRN (08:51)
[2016-09-17] MEDS: sitaGLIPtin 100 MG TABLET PO SCH (08:51)
[2016-09-17] MEDS: CLOPIDOGREL 75 MG TABLET PO SCH (08:51)
[2016-09-17] MEDS: CEFUROXIME 250 MG TABLET PO SCH (08:52)
[2016-09-17] MEDS: SIMETHICONE CHEW 125 MG TABLET PO SCH (08:52)
[2016-09-17] MEDS: LISINOPRIL 20 MG TABLET PO SCH (08:52)
[2016-09-17] MEDS: ASPIRIN EC 325 MG TABLET PO SCH (08:52)
[2016-09-17] MEDS: CARVEDILOL 12.5 MG TABLET PO SCH (08:52)
[2016-09-17] MEDS: PANTOPRAZOLE 40 MG TABLET PO SCH (08:52)
[2016-09-17] MEDS: ENOXAPARIN 120 MG/0.8 ML SYRINGE SUBCUT SCH (08:54)
[2016-09-17] MEDS ORDERED: ATORVASTATIN 20 MG TABLET PO SCH (14:30)
--- NOTE | 2016-09-17 14:37 | Discharge Summary ---
Addendum entered and electronically signed by Milla Tobar NP 09/17/16 15:13 : Mr. Valentino has an appointment with his mirror inspector, Dr. Rubén Case in [place], [place] on 09/24/16 at 1500 that he needs to keep. Original Note: Hospital Course - Hospital Course Hospital Course: Investigator Cash Shortage: Dr. Ring PCP: Dr. Flores Faulkner Mr. Valentino is a 51 year old male with a history of moderate coronary artery disease (50% OM 3 stenosis) per left heart catheterization in August 2013, hypertension, diabetes, dyslipidemia, GERI (uses CPAP religiously) status post large right sided CVA April 2016 with PFO (left hemiparesis has resolved but he has some persistent numbness), with some hemorrhagic transformation. He presented to the emergency room on 09/15/16 after 2 episodes of palpitations followed by shortness of breath lasting nearly 2 minutes each. He had some persistent mild chest discomfort that was described as a "burning pressure" with a history of esophagitis and 3 negative cardiac panels and normal EKG. He was suspected to possibly have some episodes of atrial fibrillation but this has not been displayed on any EKGs or telemetry thus far. Given his history of hemorrhagic transformation, neurology was consulted. Head CT was performed and showed no acute intracranial pathology, old right temporal occipital infarct present. Given these findings, we will stop his Plavix and Aspirin and start him on Eliquis. He has been receiving full-dose Lovenox, so he will start his first dose of Eliquis tonight. During admission, he was found to have triglycerides of 123, cholesterol 131, LDL 79, and HDL 42; with his history of diabetes he was started on atorvastatin 20mg po daily which will be continued at discharge. His labs are stable and vital signs have been stable. At this time , he is felt to have met maximum hospital benefit and is stable to be discharged home. We will arrange for him to have a 7-day event monitor and follow up with Dr. Ring in 2 weeks with [facility]. He has been bradycardic at times during hospitalization. He needs to keep a blood pressure and heart rate log and hold his beta love if HR drops below 55. If he has heart rates consistently below 55, he needs to call the clinic and notify his thread twister. He is to bring his BP/HR log to his follow up appointment. - Time spent with patient Time with patient DS: Less than 30 minutes Diagnosis - Discharge Diagnosis (1) Chest pain Status: Resolved (2) VICK (dyspnea on exertion) Status: Resolved (3) CAD (coronary artery disease) Status: Chronic (4) GERD (gastroesophageal reflux disease) Status: Chronic (5) HTN (hypertension) Status: Chronic (6) History of CVA (cerebrovascular accident) Status: Chronic (7) Diabetes mellitus Status: Chronic (8) Dyslipidemia Status: Chronic (9) Patent foramen ovale Status: Chronic (10) Obstructive sleep apnea Status: Chronic (11) Obesity (BMI 30-39.9) Status: Chronic Specialty Discharge - Follow Up or Referrals Follow up with: Quiana Ring MD [Physician] - 2 Weeks (Please arrange for patient to picker / packer a 7-day event monitor today and follow up with Dr. Ring in 2 weeks. ) Discharge Plan - Discharge Data Disposition: Disch To Home/Self Care Condition at Discharge: Stable Discharge Diet: diabetic diet, heart healthy Activity: resume usual activities as tolerated Hygiene: no restrictions Weight Bearing at Discharge: full weight bearing Driving: no restrictions Contact your physician if you experience:: fever over 101, Difficulty voiding, Redness or swelling, Nausea/Vomiting, Shortness of breath, Bleeding, pain uncontrolled by pain medications - Discharge Medications New Apixaban [Eliquis] 5 mg PO BID #60 tablet Atorvastatin [Lipitor] 20 mg PO DAILY #30 tablet Continue Lisinopril 40 mg PO QAM Pantoprazole Sodium 40 mg PO QAM sitaGLIPtin [Januvia] 50 mg PO QAM Simethicone [Gas Relief] 125 mg PO DAILY Calcium Carbonate [Tums Chew Tab] 750 mg PO DAILY PRN PRN Reason: Reflux Carvedilol [Coreg] 12.5 mg PO BID #0 Cefuroxime Tab [Ceftin] 250 mg PO BID Famotidine Tab [Pepcid Tab] 20 mg PO BEDTIME clonazePAM TAB [KlonoPIN] 0.5 mg PO DAILY PRN PRN Reason: Anxiety Discontinued Clopidogrel [Plavix] 75 mg PO QAM cloNIDine HCl [Clonidine HCl] 0.1 mg PO Q4-6H PRN PRN Reason: BP >175/90 - Follow Up or Referral Follow Up: Quiana Ring MD [Physician] - 2 Weeks (Please arrange for patient to picker / packer a 7-day event monitor today and follow up with Dr. Ring in 2 weeks. ) - Forms/Instructions Instructions: Chest Pain (DC), Gastroesophageal Reflux Disease (DC) Exam - Constitutional Vitals: Period Temp Pulse Resp BP Sys/Berkowitz Pulse Ox Last 24 Hr 97.3 F-98 F 52-60 18-18 114-153/63-85 91-98 Exam: General appearance: Pleasant and cooperative. Normal weight, no acute distress. - Head Head exam: Present: normal inspection, normocephalic, atraumatic. Absent: hematoma, laceration - Eye Eye exam: Present: EOMI. Absent: conjunctival injection, nystagmus, periorbital swelling, scleral icterus, laceration to eyelids Pupils: Present: PERRL. Absent: constricted, dilated, fixed, irregular, unequal - ENT ENT exam: Present: normal exam, normal external ear exam - Neck Neck exam: Present: normal inspection. Absent: lymphadenopathy, meningismus, tenderness, thyromegaly - Respiratory Respiratory exam: Present: clear to auscultation bilaterally. Absent: accessory muscle use, chest wall tenderness - Cardiovascular Cardiovascular exam: Present: regular rate and rhythm. Absent: carotid bruit, gallop, JVD, rubs, murmur - GI/Abdominal GI/Abdominal exam: Present: normal bowel sounds, soft. Absent: distended, firm , guarding, hernia, mass, tenderness, rebound. - Extremities Exam Extremities exam: Present: normal inspection, normal capillary refill. Upper extremity pulses 2+. Lower extremity pulses 2+. Absent: calf tenderness, edema -Musculoskeletal Exam Musculoskeletal: Present: No Fluid Collection, No Pain, Normal Range of Motion - Back Exam Back exam: Present: normal inspection. Absent: muscle spasm, vertebral tenderness - Neurological Exam Neurological exam: Present: alert, oriented X3, grossly intact without resting or essential tremor - Psychiatric Psychiatric exam: Present: normal affect, normal mood - Skin Skin exam: Present: normal color, warm, dry, intact. Absent: cyanosis, diaphoretic, rash, urticaria Discharge Results Procedures and tests throughout hospitalization: Pending Orders 09/18/16 04:00 BMP w/ Mg [Basic Metabolic Panel w/Mg] IN AM Comp Blood Count Auto Diff IN AM Labs on day of discharge: Labs from last 24 hours 09/17/16 09/17/16 09/17/16 12:04 07:55 04:12 WBC RBC Hgb Hct MCV MCH MCHC RDW Plt Count MPV Neut % (Auto) Lymph % (Auto) [place] % (Auto) Eos % (Auto) Baso % (Auto) Neut # (Auto) Lymph # (Auto) [place] # (Auto) Eos # (Auto) Baso # (Auto) Immature Gran % Nucleated RBC % Immature Gran # Nucleated RBCs # Sodium 140 Potassium 4.1 Chloride 105 Carbon Dioxide 25 Anion Gap 14.1 BUN 11 Creatinine 0.80 GFR Calculation 145 BUN/Creatinine Ratio 13.00 Glucose 119 H POC Glucose 130 H 134 H Calculated Osmolality 278.4 Calcium 8.7 Magnesium 2.4 09/17/16 09/16/16 09/16/16 04:12 19:32 16:30 WBC 7.5 RBC 4.75 Hgb 13.3 L Hct 39.3 L MCV 82.7 L MCH 28 MCHC 33.8 RDW 13.1 Plt Count 152 MPV 10.9 Neut % (Auto) 65.5 Lymph % (Auto) 23.9 [place] % (Auto) 7.7 Eos % (Auto) 1.7 Baso % (Auto) 0.9 H Neut # (Auto) 4.9 Lymph # (Auto) 1.8 [place] # (Auto) 0.6 Eos # (Auto) 0.1 Baso # (Auto) 0.1 Immature Gran % 0.3 Nucleated RBC % 0.0 Immature Gran # 0.02 Nucleated RBCs # 0.00 Sodium Potassium Chloride Carbon Dioxide Anion Gap BUN Creatinine GFR Calculation BUN/Creatinine Ratio Glucose POC Glucose 207 H 141 H Calculated Osmolality Calcium Magnesium - Imaging and Cardiology Procedure: CT: report reviewed by me (mpression: No acute intracranial pathology. Chronic right temporal) DS: Provider Date of admission: 09/15/16 19:29 Primary care physician: . No PCP Attending physician on admission: Magno Youngblood MD Consults: 09/15/16 20:43 Consult to Case Mgmt/Social Srvs [CONS] Routine Reason for Case Mgmt/Social Srvs: Rehab 09/15/16 20:52 Consult to Dietitian [CONS] Routine Reason for Dietitian: Dietary Consult 09/16/16 10:49 Consult to Physician [CONS] Routine Comment: Consulting Provider: 09/16/16 10:50 Consult to Physician [CONS] Routine Comment: Known to you with prev CVA - hemo, PFO, now palp Consulting Provider: Gabino Poon Consult to Specialist Group: Neurology Consult Notification Comment: LEFT MESSAGE AT OFFICE AT 1133 Discharging clinician: MIGUEL ANGEL Kaye Expected date of discharge: 09/17/16
[2016-09-17 15:15] VITALS: BP 131/75
[2016-09-17] MEDS ORDERED: APIXABAN 5 MG TABLET PO SCH (21:00)
== END 2016-09-17 16:06 | disposition home or self-care (01) | DRG 303 ==
LOC: N.ED 15:25 → N.EDINP 19:29 → N.TELEN 20:13
PROVIDERS: ADMIT Internal Medicine Cardiovascular Disease; ATTEND Internal Medicine Cardiovascular Disease

== ENCOUNTER 2016-10-03 14:15 | Inpatient (IN) ==
[2016-10-03] MEDS ORDERED: ALUM/MAG/SIMETH/LIDO VISC 1:1 30 ML BOTTLE PO STA (15:36)
[2016-10-03] MEDS ORDERED: MORPHINE 2 MG/1 ML SYRINGE IV STA (15:36)
[2016-10-03] MEDS ORDERED: NITROGLYCERIN 2% OINT 1 INCH/GM PACK TOP STA (15:36)
[2016-10-03] MEDS ORDERED: ASPIRIN 325 MG TABLET PO STA (15:36)
[2016-10-03] MEDS ORDERED: ONDANSETRON 4 MG/2 ML VIAL IV STA (15:36)
--- NOTE | 2016-10-03 15:38 | EKG Report ---
Stationary ECG Study [facility] ER Test Date: 10/03/2016 2:20:48 PM Pat Name: LYDIA SIMON Department: Room: Gender: M Casting Supervisor: Aneesh Gallardo : 1965 Requested by: Rubén Agudelo Order Number: [id number] Reading MD: NAVA KANG Intervals [place] Rate: 66 P: 63 OR: 175 QRS: 20 QRSD: 94 T: 48 QT: 381 QTc: 394 Interpretive Statements SINUS RHYTHM Electronically Signed On 10-03-16 15:49:25 CDT by NAVA KANG [email or web address]
[2016-10-03 15:43] LABS: Basophils # 0.1 10*3/uL (0.0-0.2); Basophils % 0.8 % (0.0-0.8); Eosinophils # 0.1 10*3/uL (0.0-0.87); Eosinophils % 0.8 % (0.00-10.9); Hematocrit 39.7 VOL% (42.0-52.0); Hemoglobin 13.8 GM/DL (14.0-18.0); Immature Granulocytes % 0.3 %; Immature Granulocytes Absolute 0.02 #; Lymphocytes # 1.6 10*3/uL (1.4-4.0); Lymphocytes % 22.3 % (21.2-54.2); Mean Corpuscular HGB Conc 34.8 GM/DL (32-36); Mean Corpuscular Hemoglobin 28 PG (27-34); Mean Corpuscular Volume 80.9 FL (87-102); Mean Platelet Volume 10.8 FL (9.6-12.0); Monocytes # 0.7 10*3/uL (0.11-0.8); Monocytes % 9.3 % (1.7-12.7); Neutrophils # 4.9 10*3/uL (1.4-7.4); Neutrophils % 66.5 % (38.7-73.9); Platelet Count 173 T/CUMM (130-400); Red Blood Count 4.91 MC/CUMM (3.8-5.5); Red Cell Distribution Width 12.9 % (9.3-17.3); White Blood Count 7.3 T/CUMM (4-12)
[2016-10-03 15:47] LABS: PT Patient Result 10.6 SECS
--- NOTE | 2016-10-03 15:53 | Emergency Department Note ---
Bridgette Azar Rolonda, am scribing for, and in the presence of, Rubén Savage MD 15:34. Hussein Azar Charles R, MD, personally performed the services described in this documentation, ascribed by Phan Angeles in my presence, and it is both accurate and complete [id number] . Arrival - Arrival Chief Complaint: Chest Pain Stated Complaint: chest pain ED Nursing Triage Note: C/o left side chest "burning"-onset yesterday. Denies SOB or N/V. Had stent placed 6 days ago. Mode of Arrival: Wheelchair Limitations: No Limitations Source: Patient, Old Records Reviewed, RN Notes Reviewed - History of Present Illness HPI Narrative: Pt is a 51 y/o male who presents to the ED via wheelchair with c/o chest pain with an onset of x1 day ago. Pt has a PMHx of HTN, CAD, and Cardiovascular problems. Pt has a PSHx of left heart cath by Dr. Draper on 09/27/16. Pt stated that he tried to move an air conditioner with his left hand yesterday when he felt a sharp pain. Pt confirms lots of belching, and that he takes Brilinta but denies weakness and SOB. No other complaint/pain in ED. Onset (ago): day(s) Consistency: constant Severity: moderate Severity scale (1-10): 5 Quality: sharp, burning Allergies/Adverse Reactions: Allergies Allergy/AdvReac Type Severity Reaction Status Date / Time No Known Allergies Allergy Verified 09/27/16 06:16 Home Medications: Home Medications Medication Instructions Recorded Confirmed Type Pantoprazole Sodium 40 mg PO QAM 06/30/16 10/03/16 History sitaGLIPtin [Januvia] 100 mg PO QAM 06/30/16 10/03/16 History Famotidine Tab [Pepcid Tab] 20 mg PO BEDTIME 09/15/16 10/03/16 History Simethicone [Gas Relief] 125 mg PO DAILY 09/15/16 10/03/16 History clonazePAM TAB [KlonoPIN] 0.5 mg PO DAILY PRN 09/15/16 10/03/16 History Rosuvastatin [Crestor] 5 mg PO BEDTIME 09/27/16 10/03/16 History Aspirin EC Tab 81 mg PO DAILY tablet 09/28/16 10/03/16 Rx Carvedilol [Coreg] 6.25 mg PO BID tablet 09/28/16 10/03/16 Rx Lisinopril [Prinivil] 20 mg PO QAM tablet 09/28/16 10/03/16 Rx Ticagrelor [Brilinta] 90 mg PO BID #90 tablet 09/28/16 10/03/16 Rx Sucralfate Tab [Carafate Tab] 1 gm PO ACHS 10/03/16 10/03/16 History cloNIDine HCl [Clonidine HCl] 0.1 mg PO Q4-6H PRN 10/03/16 10/03/16 History Review of System - Review of System 12 point system: reviewed and no additional remarkable complaints except as stated - Review of System Constitutional: Absent: chills, fever, weakness Head/Ears/Nose/Throat: Absent: earache Respiratory: Absent: cough, respiratory distress Cardiovascular: Present: chest pain. Absent: palpitations Gastrointestinal: Absent: abdominal pain, nausea, vomiting, diarrhea Musculoskeletal: Absent: arm pain, back pain, neck pain Neurological: Absent: headache, weakness Medical,Surgical,& Family Hx - Medical History Cardio: History of: CAD, Hypertension, Cardiovascular Problems (history of PFO) Neurology: History of: Cerebrovascular Accident (April2016) No history of: Seizures Endocrine: History of: Diabetes Mellitus (NIDDM), Dyslipidemia Respiratory: History of: Obstructive Sleep Apnea Gastrointestinal: History of: GERD - Surgical History Cardiac Surgeries: Sugical HX of: Cardiac Catheterization (stent 09/27/16) - Family History Family History: Reports;: Family Diabetes, Family Heart Disease, Family Hypertension, Family Stroke - Social History Smoking Status: Former smoker Frequency of Alcohol Use: None Type of Drug Use: None Exam Vital Signs: Vital Signs Temperature 97.5 F L 10/03/16 16:00 Pulse Rate 87 10/03/16 16:00 Respiratory Rate 18 10/03/16 16:00 Blood Pressure 157/108 10/03/16 16:00 O2 Sat by Pulse Oximetry 97 10/03/16 14:22 - General General appearance: alert, in no apparent distress - Head Head exam: Present: atraumatic, normocephalic - Eye Eye exam: Present: PERRL, EOMI - ENT ENT exam: Present: mucous membranes moist. Absent: mucous membranes dry - Neck Neck exam: Present: full ROM. Absent: tenderness - Chest Chest inspection: Present: symmetric chest wall rise, tenderness (left chest wall pain) - Respiratory Respiratory exam: Present: normal lung sounds bilaterally. Absent: wheezes - Cardiovascular Cardiovascular exam: Present: regular rate, normal rhythm, normal heart sounds. Absent: bradycardia - Abdominal Exam Abdominal exam: Present: soft, normal bowel sounds. Absent: tenderness - Extremities Exam Extremities exam: Present: full ROM, pedal edema (+1 bilaterally). Absent: tenderness - Back Exam Back exam: Present: full ROM. Absent: tenderness - Neurological Exam Neurological exam: Present: alert, oriented X3, CN II-XII intact - Psychiatric Psychiatric exam: Present: normal affect, normal mood - Skin Skin exam: Present: warm, dry, intact, normal color. Absent: rash Course - Consultations Consultation #1: Dr. Ring consulted to admit the patient seem in the emergency room Time: 15:52 Results - Labs CBC & BMP: 10/03/16 15:20 10/03/16 15:20 Lab Results: I have reviewed the patients labs Labs: Laboratory Tests 10/03/16 10/03/16 15:20 15:20 WBC 7.3 RBC 4.91 Hgb 13.8 L Hct 39.7 L MCV 80.9 L Plt Count 173 INR 1.0 PT Patient/Control Mix 10.6 Laboratory Tests 10/03/16 15:20 Sodium 140 Potassium 3.9 Chloride 105 Carbon Dioxide 26 BUN 11 GFR Calculation 136 Glucose 111 H Magnesium 2.6 H Globulin 3.7 H Albumin/Globulin Ratio 0.9 L - Diagnostic Findings Procedure: Chest x-ray: report reviewed by me (Larger hiatal hernia with chronic scarring in the lungs.) Disposition Clinical Impression: Chest pain, CAD (coronary artery disease), Status post recent heart catheterization Case discussed with: patient, patient's family Disposition: Still a Patient Condition: Stable Time of Disposition: 15:53
--- NOTE | 2016-10-03 15:54 | XRay Report ---
XR chest 2V Date: 10/03/2016 3:36 PM History: Chest pain Comparison: 09/25/2016 Technique: PA and lateral chest Findings: The heart is normal in size with uncoiling of the aorta. Larger density posterior to the heart consistent with larger hiatal hernia. The lungs and osseous structures are stable in in appearance. Impression: Larger hiatal hernia with chronic scarring in the lungs. PROCEDURE INTERPRETED AT [facility] DEPARTMENT OF RADIOLOGY Final Report Signed by: Dr. Ama Tee
[2016-10-03] MEDS ORDERED: ONDANSETRON 4 MG/2 ML VIAL ONE (15:59)
[2016-10-03] MEDS ORDERED: NITROGLYCERIN 2% OINT 1 INCH/GM PACK TOP ONE (15:59)
[2016-10-03] MEDS ORDERED: ALUM/MAG/SIMETH/LIDO VISC 1:1 30 ML BOTTLE PO ONE (16:00)
[2016-10-03] MEDS ORDERED: MORPHINE 2 MG/1 ML SYRINGE ONE (16:00)
[2016-10-03] MEDS ORDERED: ASPIRIN 325 MG TABLET ONE (16:00)
[2016-10-03 16:08] LABS: Albumin 3.6 G/DL (3.4-5.0); Calcium 9.5 MG/DL (8.5-10.1); Magnesium 2.6 MG/DL (1.8-2.4); Osmolality,Calculated 278.4 MOS/KG (273-304); Potassium 3.9 MMOL/L (3.5-5.1); Total Protein 7.3 G/DL (6.4-8.3)
--- NOTE | 2016-10-03 17:06 | Cardiology History & Physical ---
<Nneka Power E - Last Filed: 10/03/16 16:52> Assessment and Plan - Time spent with patient Time spent with patient: Greater than 30 minutes (1) Dyslipidemia Status: Chronic Assessment and plan: SEE PLAN OF CARE LISTED BELOW Current Visit: Yes (2) Chest pain Status: Acute Assessment and plan: SEE PLAN OF CARE LISTED BELOW Current Visit: Yes (3) Obesity (BMI 30-39.9) Status: Chronic Assessment and plan: SEE PLAN OF CARE LISTED BELOW Current Visit: No (4) Diabetes mellitus Status: Chronic Assessment and plan: SEE PLAN OF CARE LISTED BELOW Current Visit: Yes (5) CVA (cerebral vascular accident) Status: Chronic Assessment and plan: SEE PLAN OF CARE LISTED BELOW Current Visit: No (6) CAD (coronary artery disease) Status: Chronic Assessment and plan: SEE PLAN OF CARE LISTED BELOW Current Visit: Yes Qualifiers: Coronary Disease-Associated Artery/Lesion type: squaxin artery History of Present Illness Chief complaint: chest pain, known CAD 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 Valentino, 51WM, has risk factors significant for known CAD, hypertension, dyslipidemia, diabetes, obesity, history of CVA, sedentary lifestyle. Patient underwent elective cardiac catheterization September 27, 2016, performed by Dr. Draper, requiring PCI to OM1 with JUAREZ. Patient tolerated the procedure well without complication was discharged home in stable condition. Patient had been doing well until this morning when he began to experience sharp, stabbing pain located in the left upper chest area without radiation. The pain was so intense it took his breath away. It did not cause nausea, vomiting or diaphoresis. This has occurred intermittently throughout the morning but patient is currently chest pain-free. He can identify no aggravating, no alleviating factors. Until this morning, he has been able to perform his usual activities without complaints of chest pain, heaviness or tightness. Cardiac biomarkers are negative. EKG unremarkable. Patient continues to take Brilinta and Aspirin as prescribed without fail. Of note, yesterday, patient moved a large, heavy air conditioning unit using his left arm. He queries as to whether this could be contributing. Patient will be transitioned to our telemetry unit. He will be monitored overnight by following his cardiac enzymes, EKG. He will be given PPI, Neurontin, Tramadol and Acetaminophen. I will add one dose of Toradol now. I will keep him NPO after midnight tonight and will reassess in the morning the need for additional cardiac workup. At this point, no need to repeat echocardiogram as there is a recent report. I will discuss with Dr. Quiana Ring and await additional recommendations. ASSESSMENT/PLAN: 1. CHEST PAIN -currently chest pain-free. His cardiac biomarkers and EKG are stable. I suspect this may be musculoskeletal in nature as he did attempt to lift a very large and heavy air conditioning unit yesterday using primarily his left upper extremity. 2. KNOWN CAD S/P PCI OM1 - continue aspirin and Brilinta. Resume beta blockade, KAMINI inhibitor, lipid-lowering agent. 3. HYPERTENSION - adequately controlled, will adjust medications accordingly during hospital stay. 4. DYSLIPIDEMIA - continue lipid-lowering agent. At this point, has recent lipid panel and therefore no need to repeat. 5. DIABETES - cover with sliding scale insulin 6. OBESITY - continue plan of care. Home Medications Medication Instructions Recorded Confirmed Type Pantoprazole Sodium 40 mg PO QAM 06/30/16 10/03/16 History sitaGLIPtin [Januvia] 100 mg PO QAM 06/30/16 10/03/16 History Famotidine Tab [Pepcid Tab] 20 mg PO BEDTIME 09/15/16 10/03/16 History Simethicone [Gas Relief] 125 mg PO DAILY 09/15/16 10/03/16 History clonazePAM TAB [KlonoPIN] 0.5 mg PO DAILY PRN 09/15/16 10/03/16 History Rosuvastatin [Crestor] 5 mg PO BEDTIME 09/27/16 10/03/16 History Aspirin EC Tab 81 mg PO DAILY tablet 09/28/16 10/03/16 Rx Carvedilol [Coreg] 6.25 mg PO BID tablet 09/28/16 10/03/16 Rx Lisinopril [Prinivil] 20 mg PO QAM tablet 09/28/16 10/03/16 Rx Ticagrelor [Brilinta] 90 mg PO BID #90 tablet 09/28/16 10/03/16 Rx Sucralfate Tab [Carafate Tab] 1 gm PO ACHS 10/03/16 10/03/16 History cloNIDine HCl [Clonidine HCl] 0.1 mg PO Q4-6H PRN 10/03/16 10/03/16 History Allergies Allergy/AdvReac Type Severity Reaction Status Date / Time No Known Allergies Allergy Verified 09/27/16 06:16 Review of systems: REVIEW OF SYSTEMS: See HPI - Constitutional Constitutional: Present: Fatigue. Absent: syncope, anorexia, night sweats - EENT Eyes: Absent: blurry vision, loss of vision, diplopia Ears: Absent: decreased hearing, ear pain, ear discharge - Cardiovascular Cardiovascular: Present: chest pain at rest. Denies chest pain with exertion, dyspnea on exertion, edema, palpitations. Absent: chest pain with deep breath, claudication - Respiratory Respiratory: Denies VICK, cough. Absent: wheezing, hemoptysis, change in phlegm color - Gastrointestinal Gastrointestinal: Denies constipation. Absent: abdominal pain, hematemesis, hematochezia, melena, change in bowel habits, nausea - Genitourinary Genitourinary: Absent: difficulty urinating, dysuria, urinary hesitancy, flank pain - Musculoskeletal Musculoskeletal: Present: back pain Absent: joint swelling, muscle cramps, muscle weakness - Neurological Neurological: Present: normal gait without frequent falls. Absent: dizziness, hemiparesis - Psychiatric Psychiatric: Absent: depression, difficulty concentrating - Endocrine Endocrine: Absent: cold intolerance, heat intolerance, polyuria, polyphagia, polydipsia - Hematologic/Lymphatic Hematologic/Lymphatic: Present: easy bruising. Absent: easy bleeding -Integumentary Integumentary: Absent: lesions, rashes, skin breakdown Medical,Surgical,& Family Hx - Medical History Cardio: History of: CAD, Hypertension, Cardiovascular Problems (history of PFO) No history of: CT Neurology: History of: Cerebrovascular Accident (April2016) No history of: Seizures Endocrine: History of: Diabetes Mellitus (NIDDM), Dyslipidemia Respiratory: History of: Obstructive Sleep Apnea Gastrointestinal: History of: GERD - Surgical History Cardiac Surgeries: Sugical HX of: Cardiac Catheterization (stent 09/27/16) - Family History Family History: Reports;: Family Diabetes, Family Heart Disease, Family Hypertension, Family Stroke - Social History Smoking Status: Former smoker Have you smoked in the last 12 months: No Frequency of Alcohol Use: None Type of Drug Use: None Marital Status: Lives With:: Spouse Functional capacity: independent ambulation Cardiology Physical Exam - Constitutional Vitals: Vital Signs Temp Pulse Resp BP Pulse Ox 97.5 F L 74 16 129/86 95 06/29/17 16:00 10/03/16 16:30 10/03/16 16:30 10/03/16 16:30 10/03/16 16:30 Intake and Output 10/03/16 10/03/16 10/03/16 07:59 15:59 23:59 Other: Weight 120.656 kg Patient Weight 10/03/16 23:59 Weight 120.656 kg Exam: General: [Appears well with no apparent distress.] [Pleasant and cooperative. ] [Appears comfortable.] HEENT: [PERRL, normocephalic, atraumatic. Mucous membranes moist. No jaundice noted. Conjunctiva moist and clear, sclerae anicteric] Neck: No JVD/HJR, no thyromegaly or lymphadenopathy noted. No carotid bruit appreciated Cardiac: [Regular rate and rhythm.] [No obvious murmur, rub or gallop.] Lungs: [Clear to auscultation without accessory muscle use to assist the respiratory pattern.] Not requiring oxygen Abdomen: Soft, bowel sounds normoactive. Nontender and nondistended. No abdominal bruit or thrill noted. No masses noted. Musculoskeletal: No fluid collection. Decreased range of motion is noted. Extremities: No clubbing, cyanosis noted. [ No edema noted.] Upper extremity pulses 2+. Lower extremity pulses 2+. Capillary refill less than 3 seconds. Skin: No unusual lesions or rashes. No skin breakdown appreciated. Neuro: Awake, alert and oriented 3. Moves all extremities well without hemiparesis or paralysis. No essential tremor is appreciated. Result/EKG - Labs CBC & BMP: 10/03/16 15:20 10/03/16 15:20 Lab Results: I have reviewed the past 24 hour labs Labs: Laboratory Results - last 24 hr 10/03/16 10/03/16 10/03/16 15:20 15:20 15:20 WBC RBC Hgb Hct MCV MCH MCHC RDW Plt Count MPV Neut % (Auto) Lymph % (Auto) [place] % (Auto) Eos % (Auto) Baso % (Auto) Neut # (Auto) Lymph # (Auto) [place] # (Auto) Eos # (Auto) Baso # (Auto) Immature Gran % Nucleated RBC % Immature Gran # Nucleated RBCs # INR 1.0 PT Patient/Control Mix 10.6 Sodium 140 Potassium 3.9 Chloride 105 Carbon Dioxide 26 Anion Gap 12.9 BUN 11 Creatinine 0.90 GFR Calculation 136 BUN/Creatinine Ratio 12.00 Glucose 111 H Calculated Osmolality 278.4 Calcium 9.5 Magnesium 2.6 H Total Bilirubin 1.00 AST 12 ALT 27 Alkaline Phosphatase 71 Troponin I B-Natriuretic Peptide 29 Total Protein 7.3 Albumin 3.6 Globulin 3.7 H Albumin/Globulin Ratio 0.9 L Lipase 232.0 10/03/16 10/03/16 15:20 15:20 WBC 7.3 RBC 4.91 Hgb 13.8 L Hct 39.7 L MCV 80.9 L MCH 28 MCHC 34.8 RDW 12.9 Plt Count 173 MPV 10.8 Neut % (Auto) 66.5 Lymph % (Auto) 22.3 [place] % (Auto) 9.3 Eos % (Auto) 0.8 Baso % (Auto) 0.8 Neut # (Auto) 4.9 Lymph # (Auto) 1.6 [place] # (Auto) 0.7 Eos # (Auto) 0.1 Baso # (Auto) 0.1 Immature Gran % 0.3 Nucleated RBC % 0.0 Immature Gran # 0.02 Nucleated RBCs # 0.00 INR PT Patient/Control Mix Sodium Potassium Chloride Carbon Dioxide Anion Gap BUN Creatinine GFR Calculation BUN/Creatinine Ratio Glucose Calculated Osmolality Calcium Magnesium Total Bilirubin AST ALT Alkaline Phosphatase Troponin I < 0.015 B-Natriuretic Peptide Total Protein Albumin Globulin Albumin/Globulin Ratio Lipase - Diagnostic Findings Procedure: Chest x-ray: report reviewed by hi - EKG EKG results: interpreted by hi EKG shows: sinus rhythm <Quiana Ring - Last Filed: 10/03/16 19:14> History of Present Illness History of present illness: I have personally interviewed and evaluated the patient, reviewed the chart and discussed medical decision-making with Practitioner Tono. I have read this note and agree with her documentation here in. Cardiology Physical Exam - Constitutional Vitals: Vital Signs Temp Pulse Resp BP Pulse Ox 98.2 F 74 18 131/79 98 10/03/16 18:54 10/03/16 18:54 10/03/16 18:54 10/03/16 18:54 10/03/16 18:54 Intake and Output 10/03/16 10/03/16 10/03/16 07:59 15:59 23:59 Other: Weight 120.656 kg 120.656 kg Patient Weight 10/03/16 23:59 Weight 120.656 kg Result/EKG - Labs CBC & BMP: 10/03/16 18:24 10/03/16 18:24 Labs: Laboratory Results - last 24 hr 10/03/16 10/03/16 10/03/16 15:20 15:20 15:20 WBC RBC Hgb Hct MCV MCH MCHC RDW Plt Count MPV Neut % (Auto) Lymph % (Auto) [place] % (Auto) Eos % (Auto) Baso % (Auto) Neut # (Auto) Lymph # (Auto) [place] # (Auto) Eos # (Auto) Baso # (Auto) Immature Gran % Nucleated RBC % Immature Gran # Nucleated RBCs # INR 1.0 PT Patient/Control Mix 10.6 Sodium 140 Potassium 3.9 Chloride 105 Carbon Dioxide 26 Anion Gap 12.9 BUN 11 Creatinine 0.90 GFR Calculation 136 BUN/Creatinine Ratio 12.00 Glucose 111 H Calculated Osmolality 278.4 Calcium 9.5 Magnesium 2.6 H Total Bilirubin 1.00 AST 12 ALT 27 Alkaline Phosphatase 71 Troponin I B-Natriuretic Peptide 29 Total Protein 7.3 Albumin 3.6 Globulin 3.7 H Albumin/Globulin Ratio 0.9 L Lipase 232.0 10/03/16 10/03/16 10/03/16 15:20 15:20 18:24 WBC 7.3 RBC 4.91 Hgb 13.8 L Hct 39.7 L MCV 80.9 L MCH 28 MCHC 34.8 RDW 12.9 Plt Count 173 MPV 10.8 Neut % (Auto) 66.5 Lymph % (Auto) 22.3 [place] % (Auto) 9.3 Eos % (Auto) 0.8 Baso % (Auto) 0.8 Neut # (Auto) 4.9 Lymph # (Auto) 1.6 [place] # (Auto) 0.7 Eos # (Auto) 0.1 Baso # (Auto) 0.1 Immature Gran % 0.3 Nucleated RBC % 0.0 Immature Gran # 0.02 Nucleated RBCs # 0.00 INR PT Patient/Control Mix Sodium Potassium Chloride Carbon Dioxide Anion Gap BUN Creatinine GFR Calculation BUN/Creatinine Ratio Glucose Calculated Osmolality Calcium Magnesium Total Bilirubin AST ALT Alkaline Phosphatase Troponin I < 0.015 < 0.015 B-Natriuretic Peptide Total Protein Albumin Globulin Albumin/Globulin Ratio Lipase 10/03/16 10/03/16 18:24 18:24 WBC 7.3 RBC 4.81 Hgb 13.2 L Hct 39.3 L MCV 81.7 L MCH 27 MCHC 33.6 RDW 12.9 Plt Count 175 MPV 10.6 Neut % (Auto) 63.2 Lymph % (Auto) 26.1 [place] % (Auto) 8.6 Eos % (Auto) 1.1 Baso % (Auto) 0.7 Neut # (Auto) 4.6 Lymph # (Auto) 1.9 [place] # (Auto) 0.6 Eos # (Auto) 0.1 Baso # (Auto) 0.1 Immature Gran % 0.3 Nucleated RBC % 0.0 Immature Gran # 0.02 Nucleated RBCs # 0.00 INR PT Patient/Control Mix Sodium 141 Potassium 3.9 Chloride 104 Carbon Dioxide 29 Anion Gap 11.9 BUN 11 Creatinine 0.90 GFR Calculation 136 BUN/Creatinine Ratio 12.00 Glucose 93 Calculated Osmolality 279.3 Calcium 9.2 Magnesium 2.6 H Total Bilirubin AST ALT Alkaline Phosphatase Troponin I B-Natriuretic Peptide Total Protein Albumin Globulin Albumin/Globulin Ratio Lipase
[2016-10-03] MEDS ORDERED: KETOROLAC 30 MG/1 ML VIAL IM STA (17:12)
[2016-10-03] MEDS ORDERED: cloNIDine 0.1 MG TABLET PO PRN (17:12)
[2016-10-03] MEDS ORDERED: clonazePAM 0.5 MG TABLET PO PRN (17:12)
--- NOTE | 2016-10-03 18:14 | EKG Report ---
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
[2016-10-03 18:44] LABS: Basophils # 0.1 10*3/uL (0.0-0.2); Basophils % 0.7 % (0.0-0.8); Eosinophils # 0.1 10*3/uL (0.0-0.87); Eosinophils % 1.1 % (0.00-10.9); Hematocrit 39.3 VOL% (42.0-52.0); Hemoglobin 13.2 GM/DL (14.0-18.0); Immature Granulocytes % 0.3 %; Immature Granulocytes Absolute 0.02 #; Lymphocytes # 1.9 10*3/uL (1.4-4.0); Lymphocytes % 26.1 % (21.2-54.2); Mean Corpuscular HGB Conc 33.6 GM/DL (32-36); Mean Corpuscular Hemoglobin 27 PG (27-34); Mean Corpuscular Volume 81.7 FL (87-102); Mean Platelet Volume 10.6 FL (9.6-12.0); Monocytes # 0.6 10*3/uL (0.11-0.8); Monocytes % 8.6 % (1.7-12.7); Neutrophils # 4.6 10*3/uL (1.4-7.4); Neutrophils % 63.2 % (38.7-73.9); Platelet Count 175 T/CUMM (130-400); Red Blood Count 4.81 MC/CUMM (3.8-5.5); Red Cell Distribution Width 12.9 % (9.3-17.3); White Blood Count 7.3 T/CUMM (4-12)
[2016-10-03 18:55] LABS: Calcium 9.2 MG/DL (8.5-10.1); Magnesium 2.6 MG/DL (1.8-2.4); Osmolality,Calculated 279.3 MOS/KG (273-304); Potassium 3.9 MMOL/L (3.5-5.1)
[2016-10-03] MEDS: GABAPENTIN 100 MG CAPSULE PO SCH ×2 (19:57→20:13)
[2016-10-03] MEDS: traMADol 50 MG TABLET PO SCH ×2 (19:58→21:30)
[2016-10-03] MEDS: ACETAMINOPHEN 325 MG TABLET PO SCH ×2 (19:58→20:13)
[2016-10-03] MEDS: TICAGRELOR 90 MG TABLET PO SCH (20:14)
[2016-10-03] MEDS: SODIUM CHLORIDE 0.45% 1,000 ML IV SCH (20:24)
[2016-10-03] MEDS ORDERED: ROSUVASTATIN 10 MG TABLET PO SCH (21:00)
[2016-10-03] MEDS: SUCRALFATE 1 GM TABLET PO SCH (21:29)
[2016-10-03] MEDS: CARVEDILOL 6.25 MG TABLET PO SCH (21:30)
--- NOTE | 2016-10-04 04:07 | EKG Report ---
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
[2016-10-04] MEDS ORDERED: ASPIRIN EC 81 MG TABLET PO SCH (09:00)
[2016-10-04] MEDS ORDERED: LISINOPRIL 20 MG TABLET PO SCH (09:00)
[2016-10-04] MEDS ORDERED: sitaGLIPtin 100 MG TABLET PO SCH (09:00)
[2016-10-04] MEDS ORDERED: SIMETHICONE CHEW 125 MG TABLET PO SCH (09:00)
[2016-10-04] MEDS: SUCRALFATE 1 GM TABLET PO SCH ×2 (09:00→13:49)
[2016-10-04] MEDS ORDERED: PANTOPRAZOLE 40 MG TABLET PO SCH (09:00)
[2016-10-04 09:10] LABS: Basophils % 0.6 % (0.0-0.8); Eosinophils # 0.1 10*3/uL (0.0-0.87); Eosinophils % 1.3 % (0.00-10.9); Hemoglobin 13.1 GM/DL (14.0-18.0); Immature Granulocytes % 0.3 %; Immature Granulocytes Absolute 0.02 #; Lymphocytes # 1.2 10*3/uL (1.4-4.0); Lymphocytes % 16.9 % (21.2-54.2); Mean Corpuscular HGB Conc 33.6 GM/DL (32-36); Mean Corpuscular Hemoglobin 28 PG (27-34); Mean Corpuscular Volume 82.5 FL (87-102); Mean Platelet Volume 11.1 FL (9.6-12.0); Monocytes # 0.5 10*3/uL (0.11-0.8); Neutrophils # 5.1 10*3/uL (1.4-7.4); Neutrophils % 73.9 % (38.7-73.9); Platelet Count 140 T/CUMM (130-400); Red Blood Count 4.73 MC/CUMM (3.8-5.5); Red Cell Distribution Width 13.2 % (9.3-17.3); White Blood Count 6.9 T/CUMM (4-12)
[2016-10-04 09:47] LABS: Platelet Estimate Normal
[2016-10-04 12:04] LABS: Amorphous Crystals,Urine Few /HPF (Few); Apearance,Urine CLOUDY (Clear); Bilirubin,Urine Negative (Negative); Blood, Urine Negative (Negative); Glucose,Urine (UA) Negative (Negative); Ketones,Urine Negative (Negative); Mucus,Urine Occasional /LPF (Occasional); Nitrite,Urine Negative (Negative); Protein,Urine Negative; Urine Color Yellow (Yellow); Urine Specific Gravity 1.013 (1.001-1.035); Urine Urobilinogen < 2.0 EU/DL (0.2-1.0)
[2016-10-04 12:06] VITALS: BP 129/76
[2016-10-04] MEDS: CARVEDILOL 6.25 MG TABLET PO SCH (14:22)
[2016-10-04] MEDS: GABAPENTIN 100 MG CAPSULE PO SCH ×2 (14:22→14:26)
[2016-10-04] MEDS: traMADol 50 MG TABLET PO SCH (14:26)
[2016-10-04] MEDS: ACETAMINOPHEN 325 MG TABLET PO SCH (14:26)
[2016-10-04] MEDS: TICAGRELOR 90 MG TABLET PO SCH (14:26)
[2016-10-04] MEDS: SODIUM CHLORIDE 0.45% 1,000 ML IV SCH (14:42)
--- NOTE | 2016-10-04 14:56 | Discharge Summary ---
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 Valentino, 51WM, has risk factors significant for known CAD, hypertension, dyslipidemia, diabetes, obesity, history of CVA, sedentary lifestyle. Patient underwent elective cardiac catheterization September 27, 2016, performed by Dr. Draper, requiring PCI to OM1 with JUAREZ. Patient tolerated the procedure well without complication was discharged home in stable condition. Patient had been doing well until October 03, 2016 when he began to experience sharp, stabbing pain located in the left upper chest area without radiation. The pain was so intense it took his breath away. It did not cause nausea, vomiting or diaphoresis. This has occurred intermittently throughout the morning and for this reason, he felt as if he should be evaluated in the emergency department. He was housed in our telemetry unit overnight. Cardiac biomarkers negative, EKG unremarkable. This morning, patient underwent Cardiolite stress test and received favorable results. Of note, patient had lifted a large, heavy air conditioner using primarily his left arm to carry the unit the day prior to experiencing chest pain. He also has a large hiatal hernia which may be contributing to his symptoms. He is being discharged home in stable condition and will follow up with Dr. Ring office on a previously scheduled date in approximately 10 days. He will be given the following new medications and will continue his prior home medications. Neurontin 100 mg 1 p.o. 3 times daily 2 weeks Ultram 50 mg 1 p.o. twice daily 1 week Acetaminophen 325 mg 1 p.o. twice daily 1 week Again, he will resume his preadmission medications including: Aspirin, Brilinta , Carvedilol 6.25 mg p.o. twice daily, lisinopril 20 g orally daily, pantoprazole 40 mg orally daily, Crestor 5 mg orally each evening. - Time spent with patient Time with patient DS: Greater than 30 minutes Diagnosis - Discharge Diagnosis (1) Dyslipidemia Status: Chronic (2) Chest pain Status: Acute (3) Obesity (BMI 30-39.9) Status: Chronic (4) Diabetes mellitus Status: Chronic (5) CVA (cerebral vascular accident) Status: Chronic (6) CAD (coronary artery disease) Status: Chronic Specialty Discharge - Follow Up or Referrals Follow up with: Quiana Ring MD [Physician] - (Currently has an appointment with Dr. Ring in approximately 10 days. They will keep that appointment.) Discharge Plan - Discharge Data Disposition: Disch To Home/Self Care Condition at Discharge: Stable Discharge Diet: heart healthy Activity: resume usual activities as tolerated Hygiene: no restrictions Weight Bearing at Discharge: full weight bearing Driving: no restrictions Contact your physician if you experience:: fever over 101, Difficulty voiding, Redness or swelling, Nausea/Vomiting, Shortness of breath, Bleeding, pain uncontrolled by pain medications - Discharge Medications New Acetaminophen Tab [Tylenol Tab] 325 mg PO BID tablet Gabapentin Cap/Tab [Neurontin Cap/Tab] 100 mg PO TID capsule traMADol TAB [Ultram] 50 mg PO BID tablet Continue Pantoprazole Sodium 40 mg PO QAM sitaGLIPtin [Januvia] 100 mg PO QAM Simethicone [Gas Relief] 125 mg PO DAILY Carvedilol [Coreg] 6.25 mg PO BID tablet Lisinopril [Prinivil] 20 mg PO QAM tablet Ticagrelor [Brilinta] 90 mg PO BID #90 tablet Aspirin EC Tab 81 mg PO DAILY tablet Famotidine Tab [Pepcid Tab] 20 mg PO BEDTIME clonazePAM TAB [KlonoPIN] 0.5 mg PO DAILY PRN PRN Reason: Anxiety Rosuvastatin [Crestor] 5 mg PO BEDTIME Sucralfate Tab [Carafate Tab] 1 gm PO ACHS cloNIDine HCl [Clonidine HCl] 0.1 mg PO Q4-6H PRN PRN Reason: Hypertension - Follow Up or Referral Follow Up: Quiana Ring MD [Physician] - (Currently has an appointment with Dr. Ring in approximately 10 days. They will keep that appointment.) - Forms/Instructions Instructions: Chest Pain (DC) Exam - Constitutional Vitals: Period Temp Pulse Resp BP Sys/Berkowitz Pulse Ox Last 24 Hr 97.6 F-97.7 F 60-62 18 118-129/71-76 95-96 Exam: General: [Appears well with no apparent distress.] [Pleasant and cooperative. ] [Appears comfortable.] HEENT: [PERRL, normocephalic, atraumatic. Mucous membranes moist. No jaundice noted. Conjunctiva moist and clear, sclerae anicteric] Neck: No JVD/HJR, no thyromegaly or lymphadenopathy noted. No carotid bruit appreciated Cardiac: [Regular rate and rhythm.] [No murmur rub or gallop.] Lungs: [Clear to auscultation without accessory muscle use to assist the respiratory pattern.] Not requiring oxygen. Abdomen: Soft, bowel sounds normoactive. Nontender and nondistended. No abdominal bruit or thrill noted. No masses noted. Musculoskeletal: No fluid collection. Decreased range of motion is noted. Extremities: No clubbing, cyanosis noted. [ No edema noted.] Upper extremity pulses 2+. Lower extremity pulses 2+. Capillary refill less than 3 seconds. Skin: No unusual lesions or rashes. No skin breakdown appreciated. Neuro: Awake, alert and oriented 3. Moves all extremities well without hemiparesis or paralysis. No essential tremor is appreciated. Discharge Results Labs on day of discharge: Labs from last 24 hours 10/04/16 10/04/16 10/04/16 11:45 11:16 08:42 WBC 6.9 RBC 4.73 Hgb 13.1 L Hct 39.0 L MCV 82.5 L MCH 28 MCHC 33.6 RDW 13.2 Plt Count 140 MPV 11.1 Neut % (Auto) 73.9 Lymph % (Auto) 16.9 L [place] % (Auto) 7.0 Eos % (Auto) 1.3 Baso % (Auto) 0.6 Neut # (Auto) 5.1 Lymph # (Auto) 1.2 L [place] # (Auto) 0.5 Eos # (Auto) 0.1 Baso # (Auto) 0.0 Immature Gran % 0.3 Nucleated RBC % 0.0 Immature Gran # 0.02 Nucleated RBCs # 0.00 Platelet Estimate Normal Morphology Comment POC Glucose 131 H Urine Color Yellow Urine Appearance Cloudy Urine pH 8.0 Ur Specific [place] 1.013 Urine Protein Negative Urine Glucose (UA) Negative Urine Ketones Negative Urine Blood Negative Urine Nitrate Negative Urine Bilirubin Negative Urine Urobilinogen < 2.0 H Urine Leukocytes Negative Amorphous Crystals Few Urine Mucus Occasional Ur Culture Indicated? Not indicated 10/04/16 08:00 WBC RBC Hgb Hct MCV MCH MCHC RDW Plt Count MPV Neut % (Auto) Lymph % (Auto) [place] % (Auto) Eos % (Auto) Baso % (Auto) Neut # (Auto) Lymph # (Auto) [place] # (Auto) Eos # (Auto) Baso # (Auto) Immature Gran % Nucleated RBC % Immature Gran # Nucleated RBCs # Platelet Estimate Morphology Comment POC Glucose 143 H Urine Color Urine Appearance Urine pH Ur Specific [place] Urine Protein Urine Glucose (UA) Urine Ketones Urine Blood Urine Nitrate Urine Bilirubin Urine Urobilinogen Urine Leukocytes Amorphous Crystals Urine Mucus Ur Culture Indicated? - Imaging and Cardiology Cardiology Procedure: report reviewed by me Procedure: Chest x-ray: report reviewed by me DS: Provider Date of admission: 10/03/16 17:41 Primary care physician: Flores Faulkner, Attending physician on admission: Quiana Ring, Discharging clinician: Nneka Power NP Expected date of discharge: 10/04/16
--- NOTE | 2016-10-04 19:58 | Nuclear Medicine Report ---
Date: 10/04/2016 STRESS TEST REFERRING: Quiana Ring MD INTERPRETING: Quiana Ring MD INDICATION: A 51-year-old male with coronary artery disease, atypical chest pain. PROCEDURE: The patient underwent exercise Cardiolite per protocol, 10 mCi Technetium 99 were injecte d for rest imaging. Subsequently, the patient was exercised per Horace protocol and at peak stress 30 mCi of technetium 99 were injected for stress imaging. EKG interpretation was supervised by Madina White NP, and reviewed by me. The patient exercised according to Horace protocol until achieving a m aximum heart rate of 177 beats per minute (105% maximum predicted heart rate) and 7.3 METS. Resting blood pressure was 130/65. The patient did not have any chest pain, arrhythmias or EKG changes consi stent with ischemia. SPECT images were obtained in the short axis, horizontal and vertical long axis with gating. Ejectio n fraction is 69%. End-diastolic volume 71 mL, end-systolic volume 22 mL, stroke volume is 49 mL. O verall wall motion is grossly normal. At rest, there is a large extent, severe intensity perfusion d efect involving the inferior wall. There is also a small extent, mild intensity perfusion defect not ed in the mid anterior wall. With stress imaging, the mid anterior wall defect resolves, and the inf erior wall perfusion defect improves such that it becomes a large extent, mild intensity perfusion de fect. On review of cine images, diaphragmatic attenuation is noted. IMPRESSION: 1. NORMAL LEFT VENTRICULAR SYSTOLIC FUNCTION WITHOUT REGIONAL WALL MOTION ABNORMALITY. 2. FIXED INFERIOR WALL PERFUSION DEFECT THAT IS WORSE WITH STRESS WHEN COMPARED TO REST, AND THOUGHT TO BE SECONDARY TO DIAPHRAGMATIC ATTENUATION. 3. NO GROSS NUCLEAR EVIDENCE OF REVERSIBLE ISCHEMIA. Of note, the patient was unable to tolerate prone imaging. Procedure performed and interpreted at [facility] Department of Radiology.
== END 2016-10-04 15:30 | disposition home or self-care (01) | DRG 313 ==
LOC: N.ED 14:15 → N.EDINP 17:41 → N.TELEN 18:55
PROVIDERS: ADMIT Internal Medicine Cardiovascular Disease; ATTEND Internal Medicine Cardiovascular Disease

== ENCOUNTER 2017-07-28 15:00 | Observation (INO) ==
[2017-07-28] MEDS ORDERED: ZALEPLON 5 MG CAPSULE PO PRN (15:27)
[2017-07-28] MEDS ORDERED: LACTULOSE 20 GM/30 ML UDCUP PO PRN (15:27)
[2017-07-28] MEDS ORDERED: ACETAMINOPHEN 325 MG TABLET PO PRN (15:27)
[2017-07-28] MEDS ORDERED: DOCUSATE SODIUM 100 MG CAPSULE PO PRN (15:27)
[2017-07-28] MEDS ORDERED: MAGNESIUM SULF RIDER 4 GM in PREMIX 1 EACH IV PRN (15:27)
[2017-07-28] MEDS ORDERED: MAGNESIUM SULF RIDER 2 GM in PREMIX 1 EACH IV PRN (15:27)
[2017-07-28] MEDS ORDERED: POTASSIUM CHLORIDE 20 MEQ TABLET PO PRN (15:27)
[2017-07-28] MEDS ORDERED: guaiFENesin/DM ER 600-30 MG TABLET PO PRN (15:27)
[2017-07-28] MEDS ORDERED: ONDANSETRON 4 MG/2 ML VIAL IV PRN (15:27)
[2017-07-28] MEDS ORDERED: diphenhydrAMINE CAP 25 MG CAPSULE PO PRN (15:27)
[2017-07-28] MEDS ORDERED: cloNIDine 0.1 MG TABLET PO PRN (15:31)
[2017-07-28] MEDS ORDERED: GLUCAGON 1 MG VIAL IM PRN (15:39)
[2017-07-28] MEDS ORDERED: DEXTROSE 50% 25 GM/50 ML VIAL IV PRN (15:39)
[2017-07-28 16:05] LABS: Basophils # 0.1 10*3/uL (0.0-0.2); Basophils % 0.8 % (0.0-0.8); Eosinophils # 0.1 10*3/uL (0.0-0.87); Eosinophils % 1.5 % (0.00-10.9); Hematocrit 44.6 VOL% (42.0-52.0); Immature Granulocytes % 0.2 %; Immature Granulocytes Absolute 0.02 #; Lymphocytes # 2.2 10*3/uL (1.4-4.0); Lymphocytes % 24.9 % (21.2-54.2); Mean Corpuscular HGB Conc 33.6 GM/DL (32-36); Mean Corpuscular Hemoglobin 28 PG (27-34); Mean Corpuscular Volume 84.5 FL (87-102); Mean Platelet Volume 10.6 FL (9.6-12.0); Monocytes # 0.7 10*3/uL (0.11-0.8); Monocytes % 7.7 % (1.7-12.7); Neutrophils # 5.6 10*3/uL (1.4-7.4); Neutrophils % 64.9 % (38.7-73.9); Platelet Count 172 T/CUMM (130-400); Red Blood Count 5.28 MC/CUMM (3.8-5.5); Red Cell Distribution Width 13.2 % (9.3-17.3); White Blood Count 8.7 T/CUMM (4-12)
[2017-07-28] MEDS ORDERED: traMADol 50 MG TABLET PO PRN (16:08)
[2017-07-28] MEDS ORDERED: MAGNESIUM HYDROXIDE SUSP 30 ML UDCUP PO PRN (16:09)
[2017-07-28] MEDS ORDERED: ALUMINUM/MAGNES/SIMETH MAX STR 30 ML UDCUP PO PRN (16:11)
[2017-07-28] MEDS ORDERED: NITROGLYCERIN SL 0.4 MG TABLET SL PRN (16:13)
[2017-07-28] MEDS ORDERED: hydrALAZINE 20 MG/1 ML VIAL IV PRN (16:29)
[2017-07-28] MEDS: clonazePAM 0.5 MG TABLET PO SCH (16:41)
[2017-07-28 16:55] LABS: Calcium 9.5 MG/DL (8.5-10.1); Osmolality,Calculated 279.4 MOS/KG (273-304); Potassium 3.9 MMOL/L (3.5-5.1); Thyroid Stimulating Hormone 1.38 uIU/ml (0.358-3.74)
[2017-07-28 17:00] LABS: Troponin I Only < 0.015 NG/ML (0.00-0.045)
[2017-07-28 17:16] LABS: Apearance,Urine CLEAR (Clear); Bilirubin,Urine Negative (Negative); Blood, Urine Negative (Negative); Glucose,Urine (UA) Negative (Negative); Ketones,Urine Negative (Negative); Nitrite,Urine Negative (Negative); Protein,Urine Negative; RBC,Urine <1 /HPF (0-4); Urine Color Yellow (Yellow); Urine Specific Gravity 1.012 (1.001-1.035); Urine Urobilinogen < 2.0 EU/DL (0.2-1.0); WBC,Urine 1 /HPF (0-6)
[2017-07-28] MEDS: INSULIN LISPRO 100 UNIT/ML SUBCUT SCH ×2 (17:16→21:20)
[2017-07-28] MEDS ORDERED: ALUM/MAG/SIMETH/LIDO VISC 1:1 30 ML BOTTLE PO ONE (17:22)
[2017-07-28] MEDS: NITROGLYCERIN 2% OINT 1 INCH/GM PACK TOP SCH (17:30)
[2017-07-28 19:03] LABS: Troponin I Only < 0.015 NG/ML (0.00-0.045)
[2017-07-28] MEDS: FAMOTIDINE 20 MG TABLET PO SCH (21:22)
[2017-07-28] MEDS: ROSUVASTATIN 10 MG TABLET PO SCH (21:22)
[2017-07-28 22:34] LABS: Troponin I Only < 0.015 NG/ML (0.00-0.045)
[2017-07-29] MEDS: NITROGLYCERIN 2% OINT 1 INCH/GM PACK TOP SCH ×4 (00:15→19:15)
[2017-07-29 04:30] LABS: Basophils # 0.1 10*3/uL (0.0-0.2); Eosinophils # 0.2 10*3/uL (0.0-0.87); Eosinophils % 2.6 % (0.00-10.9); Hematocrit 39.4 VOL% (42.0-52.0); Hemoglobin 12.9 GM/DL (14.0-18.0); Immature Granulocytes % 0.4 %; Immature Granulocytes Absolute 0.03 #; Lymphocytes # 1.9 10*3/uL (1.4-4.0); Lymphocytes % 26.4 % (21.2-54.2); Mean Corpuscular HGB Conc 32.7 GM/DL (32-36); Mean Corpuscular Hemoglobin 28 PG (27-34); Mean Corpuscular Volume 86.4 FL (87-102); Mean Platelet Volume 10.6 FL (9.6-12.0); Monocytes # 0.7 10*3/uL (0.11-0.8); Monocytes % 9.6 % (1.7-12.7); Neutrophils # 4.3 10*3/uL (1.4-7.4); Platelet Count 159 T/CUMM (130-400); Red Blood Count 4.56 MC/CUMM (3.8-5.5); Red Cell Distribution Width 13.3 % (9.3-17.3); White Blood Count 7.2 T/CUMM (4-12)
[2017-07-29 05:04] LABS: Calcium 8.9 MG/DL (8.5-10.1); Osmolality,Calculated 285.1 MOS/KG (273-304); Potassium 4.1 MMOL/L (3.5-5.1); Risk Ratio 2.39; VLDL CHOLESTEROL 20.8 MG/DL
[2017-07-29] MEDS ORDERED: DIAZEPAM 5 MG TABLET PO ONE (06:48)
[2017-07-29] MEDS ORDERED: diphenhydrAMINE CAP 25 MG CAPSULE PO ONE (06:48)
[2017-07-29] MEDS: POLYETHYLENE GLYCOL POWDER 17 GM PACK PO SCH (08:30)
[2017-07-29] MEDS: GLIMEPIRIDE 2 MG TABLET PO SCH (08:30)
[2017-07-29] MEDS ORDERED: MAGNESIUM SULF RIDER 2 GM in PREMIX 1 EACH IV PRN (09:27)
[2017-07-29] MEDS ORDERED: POTASSIUM CHLORIDE RIDER 10 MEQ in PREMIX 1 EACH IV PRN (09:27)
[2017-07-29] MEDS ORDERED: HEPARIN/NACL 0.9% 2 UNITS/ML 1,000 ML IV ONE (09:54)
[2017-07-29] MEDS: SODIUM CHLORIDE 0.45% 1,000 ML IV SCH ×3 (10:00→22:57)
[2017-07-29] MEDS ORDERED: HYDROmorphone 2 MG/1 ML VIAL ONE (10:01)
[2017-07-29] MEDS ORDERED: MIDAZOLAM 2 MG/2 ML VIAL ONE (10:01)
[2017-07-29] MEDS ORDERED: ALUM/MAG/SIMETH/LIDO VISC 1:1 30 ML BOTTLE PO ONE ×2 (11:18→12:31)
[2017-07-29] MEDS: INSULIN LISPRO 100 UNIT/ML SUBCUT SCH ×4 (12:37→20:51)
[2017-07-29] MEDS: MORPHINE 4 MG/1 ML VIAL IV PRN ×2 (12:52→20:45)
[2017-07-29] MEDS: MULTIVITAMIN (CENTRUM) TABLET PO SCH (12:54)
[2017-07-29] MEDS: MULTIVITAMIN (BEROCCA) TABLET PO SCH (12:54)
[2017-07-29] MEDS: FAMOTIDINE 20 MG TABLET PO SCH ×2 (12:54→20:44)
[2017-07-29] MEDS: CLOPIDOGREL 75 MG TABLET PO SCH (12:54)
[2017-07-29] MEDS: ASPIRIN EC 81 MG TABLET PO SCH (12:54)
[2017-07-29] MEDS: POLYCARBOPHIL 625 MG TABLET PO SCH (12:54)
[2017-07-29] MEDS: LISINOPRIL 20 MG TABLET PO SCH (12:55)
[2017-07-29] MEDS: clonazePAM 0.5 MG TABLET PO SCH (12:55)
[2017-07-29] MEDS: PANTOPRAZOLE 40 MG TABLET PO SCH (12:55)
[2017-07-29] MEDS: ROSUVASTATIN 10 MG TABLET PO SCH (20:45)
[2017-07-30] MEDS: NITROGLYCERIN 2% OINT 1 INCH/GM PACK TOP SCH ×2 (01:28→06:54)
[2017-07-30 05:16] LABS: Basophils # 0.1 10*3/uL (0.0-0.2); Basophils % 0.6 % (0.0-0.8); Eosinophils # 0.1 10*3/uL (0.0-0.87); Hematocrit 40.4 VOL% (42.0-52.0); Hemoglobin 13.9 GM/DL (14.0-18.0); Immature Granulocytes % 0.2 %; Immature Granulocytes Absolute 0.02 #; Lymphocytes # 1.8 10*3/uL (1.4-4.0); Lymphocytes % 20.1 % (21.2-54.2); Mean Corpuscular HGB Conc 34.4 GM/DL (32-36); Mean Corpuscular Hemoglobin 29 PG (27-34); Mean Platelet Volume 10.9 FL (9.6-12.0); Monocytes # 0.8 10*3/uL (0.11-0.8); Monocytes % 8.8 % (1.7-12.7); Neutrophils # 6.1 10*3/uL (1.4-7.4); Neutrophils % 69.3 % (38.7-73.9); Platelet Count 154 T/CUMM (130-400); Red Blood Count 4.87 MC/CUMM (3.8-5.5); White Blood Count 8.7 T/CUMM (4-12)
[2017-07-30 05:48] LABS: Calcium 8.6 MG/DL (8.5-10.1); Osmolality,Calculated 280.5 MOS/KG (273-304); Potassium 3.9 MMOL/L (3.5-5.1)
[2017-07-30] MEDS: SODIUM CHLORIDE 0.45% 1,000 ML IV SCH (07:11)
[2017-07-30 07:51] VITALS: BP 140/81
[2017-07-30] MEDS: INSULIN LISPRO 100 UNIT/ML SUBCUT SCH (10:18)
[2017-07-30] MEDS: MULTIVITAMIN (CENTRUM) TABLET PO SCH (10:19)
[2017-07-30] MEDS: GLIMEPIRIDE 2 MG TABLET PO SCH (10:19)
[2017-07-30] MEDS: MULTIVITAMIN (BEROCCA) TABLET PO SCH (10:19)
[2017-07-30] MEDS: ASPIRIN EC 81 MG TABLET PO SCH (10:19)
[2017-07-30] MEDS: POLYCARBOPHIL 625 MG TABLET PO SCH (10:19)
[2017-07-30] MEDS: clonazePAM 0.5 MG TABLET PO SCH (10:19)
[2017-07-30] MEDS: LISINOPRIL 20 MG TABLET PO SCH (10:20)
[2017-07-30] MEDS: POLYETHYLENE GLYCOL POWDER 17 GM PACK PO SCH (10:20)
[2017-07-30] MEDS: PANTOPRAZOLE 40 MG TABLET PO SCH (10:20)
[2017-07-30] MEDS: CLOPIDOGREL 75 MG TABLET PO SCH (10:20)
[2017-07-30] MEDS: FAMOTIDINE 20 MG TABLET PO SCH (10:20)
== END 2017-07-30 12:08 | disposition home or self-care (01) ==
LOC: INTOOBSV 15:23 → N.CC 15:23 → N.TELEN 07-29 15:47
PROVIDERS: ADMIT Internal Medicine Cardiovascular Disease; ATTEND Internal Medicine Cardiovascular Disease
PROC: CLCCHCL (ICD-10-PCS; 2017-07-29 10:45)